=== PATIENT | female | born 1945 | race Caucasian/White ===

== ENCOUNTER → 2022-12-12 15:13 | Outpatient (CLI) | payer SELFPAY ==
[2022-12-12 17:54] LABS: Basophils % 0.6 % (0.1-2.0); Eosinophils # 0.2 K/mm3 (0.0-0.4); Eosinophils % 3.3 % (0.1-12.0); Hematocrit 35.4 % (37.0-47.0); Hemoglobin 10.2 g/dL (12.2-16.2); Lymphocytes # 1.1 K/mm3 (0.7-4.5); Lymphocytes % 18.8 % (10-50); Mean Corpuscular HGB Conc 28.9 g/dL (31.8-35.4); Mean Corpuscular Hemoglobin 24.9 pg (27.0-31.2); Monocytes # 0.3 K/mm3 (0.1-1.0); Monocytes % 5.3 % (1.7-9.3); Neutrophils # 4.4 K/mm3 (1.8-7.8); Platelet Count 407 K/mm3 (142-424); Red Blood Count 4.11 M/mm3 (4.20-5.40); Red Cell Distribution Width 19.7 % (11.5-17.5); White Blood Count 6.1 K/mm3 (4.8-10.8)
== END ==
PROVIDERS: PCP Family Medicine; Visit Provider Family Medicine
DX: D64.9 Anemia, unspecified (principal)
CPT/HCPCS: 85025

== ENCOUNTER 2024-05-12 15:57 | Inpatient (IN) | payer MEDICARE, SELFPAY ==
[2024-05-12] VITALS (12 sets, daily range): BP systolic 97–155; BP diastolic 43–67; PULSE 71–101; RESP 19–30; TEMP 36.5–39.1; O2SAT 88–99; BMI 20.1
--- NOTE | 2024-05-12 16:00 | ECG_ITS ---
APPROVED REPORT Exam: Resting ECG HR:92 bpm ECG Measurements Heart Rate 92 AXES AK 166 P 20 QRSd 90 QRS -48 QT 345 T 59 QTc 395 Conclusion SINUS RHYTHM PATTERN CONSISTENT WITH PULMONARY DISEASE POSSIBLE RIGHT VENTRICULAR CONDUCTION DELAY [RSR (QR) IN V1/V2] LEFT ANTERIOR FASCICULAR BLOCK [QRS AXIS <= -45, QR IN I, RS IN II] ABNORMAL ECG UNCONFIRMED REPORT Electronically signed by : Sven Helms, 05/12/2024 23:15:46
--- NOTE | 2024-05-12 16:13 | XR_ITS ---
PROCEDURE INFORMATION: Exam: XR Chest Exam date and time: 05/12/2024 4:34 PM Age: 78 years old Clinical indication: Dyspnea TECHNIQUE: Imaging protocol: Radiologic exam of the chest. Views: 1 view. COMPARISON: No relevant prior studies available. FINDINGS: Lungs: Unremarkable. No consolidation. Pleural spaces: Unremarkable. No pleural effusion. No pneumothorax. Heart/Mediastinum: Retrocardiac gas collection compatible with large hiatal hernia. Bones/joints: Chronic deformity of the right clavicle compatible with old, healed fracture. No acute fracture. IMPRESSION: No significant infiltrate. Findings compatible with large hiatal hernia.
--- NOTE | 2024-05-12 16:22 | ED_ITS ---
Discharge Plan Disposition Patient Disposition: Admitted Referrals Follow up/Referrals: Provider,Referral, [Primary Care Provider] - See instructions Clinical Impressions Clinical Impression: Acute hypoxemic respiratory failure, Fever, Encephalopathy Discharge ED Provider: Jason Helms General Adult HPI General Chief complaint: Shortness of Breath/Dyspnea Stated complaint: cough, low 02 Time Seen by Provider: 05/12/24 16:05 Mode of Arrival: EMS Source of Information: Patient, EMS and Medical Record Limitations: No Limitations Description of Symptoms (Recalled from ER Triage Doc. by RN): pt came from [facility] [place] for shortness of breath and cough that began that last few days. per ems patient was 88% on room air History of Present Illness HPI narrative: Patient is a 78-year-old female from [place] presents today with cough shortness of breath cough and fever. Patient is encephalopathic and history is limited from her given her clinical status. We do not have any old records from her we do not know if she has a history of COPD CHF etc. Oxygen saturations were 88% on room air we do know that she does not wear oxygen at baseline. Related Data Allergies Allergy/AdvReac Type Severity Reaction Status Date / Time No Known Allergies Allergy Verified 05/12/24 16:24 [facility] Disclaimer: The information contained in this section may have been updated after the patient was seen, as this information can be updated by other users. Social History Smoking Status: Former smoker alcohol intake: never current occupational status: other Travel in the last 8 weeks: None ROS Obtained: Yes All systems reviewed & no additional complaints except as documented Physical Exam General General appearance: alert and in no apparent distress Respiratory Respiratory exam: Present other (On my evaluation patient is on 2 L nasal cannula with oxygen saturations in the mid 90s was reportedly in the 80s on room air she has diffuse wheezing prolonged and expiratory phase otherwise nonfocal) Cardiovascular Cardiovascular exam: Present regular rate, normal rhythm and other (1+ bilateral lower extremity pitting edema) Abdominal Exam Abdominal exam: Present soft; Absent distention or tenderness Neurological Exam Neurological exam: Present alert and CN II-XII intact; Absent oriented X3 (Patient oriented to name but stated that it was 1995 and that she was at [facility] she is disoriented to place and time) or motor sensory deficit Medical Decision Making [place] Inquiry Pt receiving controlled substance: No Vital Signs: 05/12/24 15:57 05/12/24 16:30 05/12/24 17:00 Temperature 102.4 F H Temperature Source Oral Pulse Rate 100 H 96 H Pulse Rate [Right Radial] 91 H Respiratory Rate 24 24 24 Blood Pressure 145/66 H 137/63 Blood Pressure [Right Arm] 155/67 H Blood Pressure Mean 101 87 Blood Pressure Mean [Right Arm] 96 02 Sat by Pulse Oximetry 88 L 99 98 Oxygen Delivery Method Room Air Room Air 05/12/24 17:30 05/12/24 17:30 05/12/24 18:00 Temperature Temperature Source Pulse Rate 87 93 H 101 H Pulse Rate [Right Radial] Respiratory Rate 22 30 H 26 H Blood Pressure 138/62 122/65 125/63 Blood Pressure [Right Arm] Blood Pressure Mean 96 83 Blood Pressure Mean [Right Arm] 02 Sat by Pulse Oximetry 97 97 95 Oxygen Delivery Method 05/12/24 18:30 05/12/24 19:00 Temperature Temperature Source Pulse Rate 96 H 89 Pulse Rate [Right Radial] Respiratory Rate 22 24 Blood Pressure 117/47 L 100/43 L Blood Pressure [Right Arm] Blood Pressure Mean 71 64 Blood Pressure Mean [Right Arm] 02 Sat by Pulse Oximetry 95 93 L Oxygen Delivery Method Lab Data Lab results reviewed: Yes I reviewed the patient's lab results. Lab Results 05/12/24 16:30: SARS-CoV-2 (PCR) Not detected, Influenza A Untype (PCR) Not detected, Influenza Type B (PCR) Not detected 05/12/24 16:35: WBC 6.1, RBC 3.79 L, Hgb 12.9, Hct 40.6, MCV 107.3 H, MCH 34.2 H , MCHC 31.9, RDW 13.3, Plt Count 195, MPV 8.4, Neut % (Auto) 88.0 H, Lymph % (Auto) 8.2 L, [place] % (Auto) 1.9, Eos % (Auto) 1.7, Baso % (Auto) 0.3, Neut # (Auto) 5.4, Lymph # (Auto) 0.5 L, [place] # (Auto) 0.1, Eos # (Auto) 0.1, Baso # (Auto) 0.0, Total Counted 100, Neutrophils % (Manual) 85 H, Lymphocytes % (Manual) 11, Monocytes % (Manual) 3, Eosinophils % (Manual) 1, Platelet Estimate Normal, Macrocytosis 2+, D-Dimer 0.65 H, Sodium 141, Potassium 3.7, Chloride 104, Carbon Dioxide 32 H, Anion Gap 8.7, BUN 20 H, Creatinine 0.80, Estimated Creat Clear 36, Estimated GFR 69, Est GFR ( Amer) 84, Glucose 147 H, Calcium 8.6, Total Bilirubin 0.3, AST 30, ALT 19, Alkaline Phosphatase 71, Troponin I < 0.01, NT-Pro-B Natriuret Pep 236, Total Protein 7.4, Albumin 3.8, G lobulin 3.6 H, Albumin/Globulin Ratio 1.1 05/12/24 16:43: VBG pH 7.37, VBG pCO2 48.7, VBG pO2 27.3 L, VBG HCO3 27.2, VBG Total CO2 28.7 H, VBG O2 Saturation 52.8, VBG Base Excess 1.8, VBG Lactic Acid 1.6 05/12/24 16:35 05/12/24 16:35 Orders (Tests/Meds): ED MEDICATIONS Generic Name Dose Route Start Last Admin Trade Name Freq PRN Reason Stop Dose Admin Doxycycline Hyclate 100 mg/ 250 mls @ 166.667 mls/hr 05/12/24 19:18 Sodium Chloride IV 05/12/24 19:19 ONCE ONE Discontinued Medications Generic Name Dose Route Start Last Admin Trade Name Freq PRN Reason Stop Dose Admin Acetaminophen 1,000 mg 05/12/24 17:07 05/12/24 17:38 Acetaminophen 1,000mg/100ml Vial IV 05/12/24 17:08 1,000 mg ONCE ONE Administration Albuterol/Ipratropium 3 ml 05/12/24 16:13 05/12/24 16:50 Ipratropium/Albuterol 3 Ml Neb IH 05/12/24 16:14 3 ml ONCE ONE Administration Magnesium Sulfate 2 gm in 50 mls @ 50 mls/hr 05/12/24 16:13 05/12/24 16:50 Magnesium Sulfate 2gm/50ml Premix IV 05/12/24 17:12 50 mls/hr ONCE ONE Administration Iopamidol 75 ml 05/12/24 18:28 05/12/24 18:29 Iopamidol-370 (76%);100ml Bottle IV 05/12/24 18:29 75 ml ONCE ONE Administration Methylprednisolone Sodium Succinate 125 mg 05/12/24 16:13 05/12/24 16:50 Methylprednisolone Sod Succ 125mg Vial IV 05/12/24 16:14 125 mg ONCE ONE Administration Sodium Chloride 10 ml 05/12/24 18:28 05/12/24 18:29 Sodium Chloride 0.9% 10ml Syr (Rad Only) IV 05/12/24 18:29 10 ml ONCE ONE Administration Sodium Chloride 50 ml 05/12/24 18:28 05/12/24 18:29 0.9 % Sodium Chloride 50 Ml Vial IV 05/12/24 18:29 50 ml ONCE ONE Administration ORDERS Category Date Time Status CT angio chest PE protocol Stat Cat Scan 05/12/24 17:50 Completed CXR --portable [XR chest portable] Stat Exams 05/12/24 16:13 Completed BNP [NT Pro Brain Natriuretic Pep.] Stat Lab 05/12/24 16:35 Completed CBC w/Auto Diff [Complete Blood Count Auto Diff] Stat Lab 05/12/24 16:35 Completed CMP [Comprehensive Metabolic Panel] Stat Lab 05/12/24 16:35 Completed D-Dimer Stat Lab 05/12/24 16:35 Completed Lactate Venous Stat Lab 05/12/24 16:43 Ordered Rapid PCR Covid and Flu A/B Stat Lab 05/12/24 16:30 Completed Trop I [Troponin I] Stat Lab 05/12/24 16:35 Completed Troponin I Q3H Lab 05/12/24 19:15 Ordered Troponin I Q3H Lab 05/12/24 22:15 Ordered UA [Urinalysis and Microscopic] Stat Lab 05/12/24 16:13 Ordered Blood Culture Stat Micro 05/12/24 16:35 Received Venous Blood Gas Stat RT 05/12/24 16:43 Completed Medical Decision Narrative: I had [id number] presenting today with wheezing cough prolonged expiratory phase hypoxemia and fever. Differential most likely a COPD exacerbation with underlying pneumonia or infection. Will check viral etiology testing get cultures chest x-ray administer steroids DuoNeb and magnesium. On the differential also would be pulmonary malaise him, decompensated heart failure with alternative explanation for fever such as urinary tract infection bacteremia etc. Will reassess after initial workup is complete. History performed on first interpreted shows no acute cardiopulmonary emergency. The fact that I had a high pretest probability for pneumonia got a CTA of the chest which had small amount of atelectasis and large hiatal hernia but no definitive pneumonia. Patient presented and was behaving from a physical exam standpoint like somebody who has COPD I discussed the case further with her daughter who states that she had an extensive history of smoking up until close to 1999 when she was diagnosed with MS. So she may have underlying undiagnosed obstructive lung disease. She was much improved after the breathing treatments and steroids and magnesium however still has significant wheezing still requiring oxygen she was admitted to hospital medicine for further evaluation and management. Doxycycline was added for an microbial coverage in the setting of presumed COPD exacerbation. Critical Care Critical Care Time Critical Care Time: Yes Attestation: On 05/12/24, the high probability of a clinically significant, sudden or life threatening deterioration of the following system(s) required my full and direct attention, intervention and personal management. The time I documented below is in addition to time spent performing reported procedures but includes the following listed in this critical care notation. Total Time Total Critical Care Time: 35
[2024-05-12 16:35] LABS: Coronavirus 19, PCR Not Detected (NotDetected); Influenza A, PCR Not Detected (NotDetected); Influenza B, PCR Not Detected (NotDetected)
[2024-05-12 16:42] LABS: Lactate Venous 1.6 mmol/L (0.4-2.0); VBG Base Excess 1.8 mmol/L (-2.4-2.3); VBG HCO3 27.2 mmol/L (23-30); VBG Oxygen Saturation 52.8 % (50-70); VBG PCO2 48.7 mmol/L (35-51); VBG PH 7.37 mmol/L (7.31-7.41); VBG PO2 27.3 mmol/L (28-40); VBG Total CO2 28.7 mmol/L (23-27)
[2024-05-12] MEDS: METHYLPREDNISOLONE SOD SUCC 125MG VIAL 125 MG IV (16:50)
[2024-05-12] MEDS: IPRATROPIUM/ALBUTEROL 3 ML NEB IH ×2 (16:50→23:39)
[2024-05-12] MEDS: MAGNESIUM SULFATE IN WATER 2 GM/50 ML PIGGYBACK IV (16:50)
[2024-05-12 16:53] LABS: Basophils % 0.3 % (0.1-2.0); Eosinophils # 0.1 K/mm3 (0.0-0.4); Eosinophils % 1.7 % (0.1-12.0); Hematocrit 40.6 % (37.0-47.0); Hemoglobin 12.9 g/dL (12.2-16.2); Lymphocytes # 0.5 K/mm3 (0.7-4.5); Lymphocytes % 8.2 % (10-50); Mean Corpuscular HGB Conc 31.9 g/dL (31.8-35.4); Mean Corpuscular Hemoglobin 34.2 pg (27.0-31.2); Mean Corpuscular Volume 107.3 fl (81-99); Mean Platelet Volume 8.4 fl (7.4-10.4); Monocytes # 0.1 K/mm3 (0.1-1.0); Monocytes % 1.9 % (1.7-9.3); Neutrophils # 5.4 K/mm3 (1.8-7.8); Platelet Count 195 K/mm3 (142-424); Red Blood Count 3.79 M/mm3 (4.20-5.40); Red Cell Distribution Width 13.3 % (11.5-17.5); White Blood Count 6.1 K/mm3 (4.8-10.8)
[2024-05-12 17:01] LABS: MANUAL DIFFERENTIAL MANUAL DIFFERENTIAL (MANUAL DIFF)
[2024-05-12 17:11] LABS: Alanine Aminotransferase 19 U/L (12-78); Albumin Level 3.8 g/dl (3.5-5.0); Albumin/Globulin Ratio 1.1 (1.1-1.8); Alkaline Phosphatase 71 U/L (38-126); Anion Gap 8.7 mEq/L (5-15); Aspartate Amino Transferase 30 U/L (14-36); Bilirubin,Total 0.3 mg/dl (0.2-1.3); Blood Urea Nitrogen 20 mg/dl (7-17); Calcium 8.6 mg/dl (8.4-10.2); Carbon Dioxide 32 mmol/L (22.0-30.0); Chloride 104 mmol/L (98-107); Creatinine Clearance Estimated 36 mL/min (50-200); Estimated Glomerular Filt Rate 69 ml/min (>60); GFR (African American) 84 ML/MIN (>60); Globulin 3.6 g/dL (1.3-3.2); Glucose 147 mg/dl (74-100); Potassium 3.7 mmoL/L (3.5-5.1); Sodium 141 mmol/L (136-145); Total Protein,Serum 7.4 g/dl (6.3-8.2)
[2024-05-12 17:17] LABS: D-Dimer 0.65 ug/mL (0.0-0.5)
[2024-05-12 17:22] LABS: NT Pro Brain Natriuretic Pep. 236 pg/mL (0-450)
[2024-05-12 17:25] LABS: Eosinophils % 1 % (0-3); Lymphocytes % 11 % (10-50); Monocytes % 3 % (2-9); Neutrophils % 85 % (42-76); Total Cells Counted 100
[2024-05-12 17:26] LABS: Macrocytosis 2+; Platelet Estimate Normal
[2024-05-12] MEDS: ACETAMINOPHEN 1,000MG/100ML VIAL 1000 MG IV (17:38)
[2024-05-12 17:50] LABS: Troponin I < 0.01 ng/ml (0.00-0.034)
--- NOTE | 2024-05-12 17:50 | CT_ITS ---
PROCEDURE INFORMATION: Exam: CTA Chest With Contrast Exam date and time: 05/12/2024 6:09 PM Age: 78 years old Clinical indication: Dyspnea; Additional info: Dyspnea, fever, equivocal XR TECHNIQUE: Imaging protocol: Computed tomographic angiography of the chest with contrast. Exam focused on the arteries. 3D rendering (Not supervised by radiologist): MIP and/or 3D reconstructed images were created by the technologist. Radiation optimization: All CT scans at this facility use at least one of these dose optimization techniques: automated exposure control; mA and/or kV adjustment per patient size (includes targeted exams where dose is matched to clinical indication); or iterative reconstruction. Contrast material: ISOVUE 370; Contrast volume: 70 ml; Contrast route: INTRAVENOUS (IV); COMPARISON: CR XR CHEST PORTABLE 05/12/2024 4:34 PM FINDINGS: Pulmonary arteries: Normal. No pulmonary emboli. Aorta: Dense atherosclerotic calcification throughout the aorta. No evidence of aneurysm or dissection. Lungs: Partial compressive atelectasis of the right lower lung. Right upper lung and left lung appear clear. Pleural spaces: Unremarkable. No pneumothorax. No pleural effusion. Heart: Unremarkable. No cardiomegaly. No pericardial effusion. Lymph nodes: Unremarkable. No enlarged lymph nodes. Stomach: Organoaxial malrotation of the stomach noted. Intestine: There is a large hiatal hernia containing the stomach hepatic flexure of the colon. Bones/joints: Moderate degenerative changes and accentuated kyphosis of the thoracic spine. No vertebral body compression or acute fracture. Soft tissues: Unremarkable. IMPRESSION: Large hiatal hernia containing the stomach and portion of the colon with associated organoaxial malrotation of the stomach. No convincing evidence of obstruction. Associated partial compressive atelectasis of the right lower lung. Lungs are otherwise appear clear.
[2024-05-12] MEDS: SODIUM CHLORIDE 0.9% 10ML SYR (RAD ONLY) 10 ML IV (18:29)
[2024-05-12] MEDS: IOPAMIDOL-370 (76%);100ML BOTTLE 75 ML IV (18:29)
[2024-05-12] MEDS: 0.9 % SODIUM CHLORIDE 50 ML VIAL IV (18:29)
--- NOTE | 2024-05-12 19:28 | PC.NURSE ---
attempted to call report to sena mary on 2n floor
--- NOTE | 2024-05-12 19:33 | PC.NURSE ---
called report to sena mary on 2nd floor and answered all questions
--- NOTE | 2024-05-12 19:47 | PC.NURSE ---
Patient arrived to floor via stretcher from ED at 19:44.
--- NOTE | 2024-05-12 19:58 | P.HP_ITS ---
History of Present Illness *Admission Date: 05/12/24 *Reason for visit:: SOB. Hypoxia *History of present illness: This patient is a 78-year-old female [facility] resident with PMHx significant for multiple sclerosis, hyperlipidemia, GERD, large hiatal hernia, former smoker arriving to the ER for evaluation of shortness of breath and hypoxia. Patient is alert and oriented, however forgetful and poor historian. History obtained from daughter(POA) at the bedside. They report patient had a fever, cough, and was shortness of breath; reason why facility scented to the ED for evaluation. Patient does not wear oxygen on baseline she otherwise denies chest pain nausea vomiting or diarrhea or any abdominal pain. she is wheelchair-bound and incontinent of bowel and urine secondary to MS. admitted for [facility] Disclaimer: The information contained in this section may have been updated after the patient was seen, as this information can be updated by other users. Medical History (Updated 05/13/24 @ 11:51 by Mickey Montgomery MD) Pneumonia Multiple sclerosis Social History (Updated 05/12/24 @ 21:15 by Amanda Mendez RN) Smoking Status: Former smoker alcohol intake: never current occupational status: other Travel in the last 8 weeks: None Review of Systems Review of Systems Review of systems:: pertinent systems reviewed and negative unless documented below Meds Home Medications and Allergies Home Medications Medication Instructions Recorded Confirmed Type acetaminophen 325 mg tablet 650 mg PO Q6HP PRN pain or fever 05/12/24 05/13/24 History aluminum-mag hydroxide-simethicone 5 ml PO BID PRN GI DISCOMFORT 05/12/24 05/12/24 History 200 mg-200 mg-20 mg/5 mL oral susp (Maalox Advanced) atorvastatin 10 mg tablet 10 mg PO DAILY 05/12/24 05/12/24 History baclofen 5 mg tablet 5 mg PO BID 05/12/24 05/12/24 History buspirone 10 mg tablet 10 mg PO BID 05/12/24 05/12/24 History calcium carb,cit ER 600 mg-vit D3 1 tab PO DAILY 05/12/24 05/12/24 History 12.5 mcg (500 unit) tablet,ext.rel calcium carbonate (Tums) 300 mg PO QID PRN indegestion 05/12/24 05/12/24 History ferrous sulfate 325 mg (65 mg 325 mg PO DAILY 05/12/24 05/12/24 History iron) tablet,delayed release yqddtfgt-wqt-euhni acid 0.4 1 tab PO DAILY 05/12/24 05/12/24 History mg-lycopene 300 mcg-lutein 250 mcg tablet (CertaVite Senior) omeprazole 40 mg capsule,delayed 40 mg PO DAILY 05/12/24 05/12/24 History release ondansetron 4 mg disintegrating 4 mg PO Q8H PRN Nausea And Vomiting 05/12/24 05/12/24 History tablet raloxifene 60 mg tablet 60 mg PO DAILY 05/12/24 05/12/24 History sertraline 100 mg tablet (Zoloft) 100 mg PO DAILY 05/12/24 05/12/24 History sertraline 50 mg tablet (Zoloft) 50 mg PO DAILY 05/12/24 05/12/24 History vibegron 75 mg tablet (Gemtesa) 75 mg PO DAILY 05/12/24 05/12/24 History vitamin B complex 1 tab PO DAILY 05/12/24 05/12/24 History New Prescriptions to Start Prescriptions: Allergies Allergy/AdvReac Type Severity Reaction Status Date / Time No Known Allergies Allergy Verified 05/12/24 16:24 Exam Data for Last 24 hours Vital signs and Labs for Last 24 Hours: Temp Pulse Resp BP Pulse Ox O2 Del Method O2 Flow Rate 98.0 F 88 20 125/63 93 L Nasal Cannula 2 05/12/24 19:41 05/12/24 19:41 05/12/24 19:41 05/12/24 19:41 05/12/24 19:00 05/12/24 19:41 05/12/24 19:41 Laboratory Results - last 24 hr 05/12/24 16:30: SARS-CoV-2 (PCR) Not detected, Influenza A Untype (PCR) Not detected, Influenza Type B (PCR) Not detected 05/12/24 16:35: WBC 6.1, RBC 3.79 L, Hgb 12.9, Hct 40.6, MCV 107.3 H, MCH 34.2 H , MCHC 31.9, RDW 13.3, Plt Count 195, MPV 8.4, Neut % (Auto) 88.0 H, Lymph % (Auto) 8.2 L, [place] % (Auto) 1.9, Eos % (Auto) 1.7, Baso % (Auto) 0.3, Neut # (Auto) 5.4, Lymph # (Auto) 0.5 L, [place] # (Auto) 0.1, Eos # (Auto) 0.1, Baso # (Auto) 0.0, Total Counted 100, Neutrophils % (Manual) 85 H, Lymphocytes % (Manual) 11, Monocytes % (Manual) 3, Eosinophils % (Manual) 1, Platelet Estimate Normal, Macrocytosis 2+, D-Dimer 0.65 H, Sodium 141, Potassium 3.7, Chloride 104, Carbon Dioxide 32 H, Anion Gap 8.7, BUN 20 H, Creatinine 0.80, Estimated Creat Clear 36, Estimated GFR 69, Est GFR ( Amer) 84, Glucose 147 H, Calcium 8.6, Total Bilirubin 0.3, AST 30, ALT 19, Alkaline Phosphatase 71, Troponin I < 0.01, NT-Pro-B Natriuret Pep 236, Total Protein 7.4, Albumin 3.8, Globulin 3.6 H, Albumin/Globulin Ratio 1.1 05/12/24 16:43: VBG pH 7.37, VBG pCO2 48.7, VBG pO2 27.3 L, VBG HCO3 27.2, VBG Total CO2 28.7 H, VBG O2 Saturation 52.8, VBG Base Excess 1.8, VBG Lactic Acid 1.6 I & O for Last 24 hours: Intake & Output 05/09/24 05/10/24 05/11/24 05/12/24 23:59 23:59 23:59 23:59 Weight 49.895 kg Constitutional Constitutional: no acute distress, thin and chronically ill appearing *Routine HEENT Exam Head: Present normocephalic and atraumatic Eye: Present EOMI and PERRL; Absent normal accommodation ENT: Present mucous membranes moist *Routine Neck Exam Neck: Present supple; Absent lymphadenopathy *Routine Respiratory Exam Respiratory: Present CTA bilaterally, prolonged expiratory phase, rhonchi, wheezes, diminished air movement, normal respiratory effort and symmetric chest movement *Routine Cardiovascular Exam Cardiovascular: Present RRR, Normal S1 and Normal S2 *Routine Abdominal Exam Abdominal: Present soft and normoactive bowel sounds; Absent tenderness, disten ded or rebound *Routine Rectal Exam Rectal:: deferred *Routine Genitalia Exam Genitalia:: deferred *Routine Extremities Exam Extremities: Absent cyanosis, clubbing or edema *Routine Skin Exam Skin: Present warm; Absent rash *Routine Neurological Exam Neurological: Present alert, oriented X3, motor deficit and normal speech; Absent moving all extremities Routine Psychiatric Exam Psychiatric: Present cooperative H&P: Result Imaging and Cardiology CT scan - chest: Status: image reviewed by me, Preliminary report and final report Chest x-ray: Status: image reviewed by me, Preliminary report and final report EKG: Status: image reviewed by me, Preliminary report and final report Assessment and Plan *Assessment and plan (1) Acute hypoxemic respiratory failure: Status: Acute Category: Medical Code(s): J96.01 - Acute respiratory failure with hypoxia (2) Multiple sclerosis: Status: Acute Category: Medical Code(s): G35 - Multiple sclerosis (3) Urinary tract infection: Status: Acute Qualifiers: Hematuria presence: without hematuria Urinary tract infection type: site unspecified Qualified Code(s): N39.0 - Urinary tract infection, site not specified Category: Medical Code(s): N39.0 - Urinary tract infection, site not specified (4) Hiatal hernia with gastroesophageal reflux disease without esophagitis: Status: Acute Category: Medical Code(s): K44.9 - Diaphragmatic hernia without obstruction or gangrene; K21.9 - Gastro-e sophageal reflux disease without esophagitis (5) Wheelchair dependent: Status: Acute Category: Medical Code(s): Z99.3 - Dependence on wheelchair Plan 78 year-old female [facility] resident with PMHx significant for multiple sclerosis, hyperlipidemia, GERD, large hiatal hernia, former smoker arriving to the ER for evaluation of shortness of breath and hypoxia. On arrival she was much improved after the breathing treatments and steroids and magnesium however still has significant wheezing still requiring oxygen. Initial workup reviewed. Labs are grossly unremarkable. D-dimer is a little high. CTA of the chest was negative for PE, does not show consolidation. However there is a Bilateral base atelectasis. CT of the abdomen showed large hiatal hernia containing transverse colon. No signs and symptoms of obstruction patient's denies abdominal pain. Urine concerning for UTI. ED requested admission for further management. I agree for it. Plan -Acute hypoxic respiratory failure In the setting of MS> suspected deterioration. Acute relapsing MS Condition to rule out COPD, Restrictive lung disease Admit patient for inpatient management MRI of the brain Continuous O2 supplement. Currently on 2 L nasal cannula. Pulmonology consult. Patient might need PFTs DuoNeb every 6. Guaifenesin as needed for cough Sputum pending Blood culture pending PT/OT for evaluation. May need placement if not longer qualified for [facility] Speech therapy Monitor for sepsis. Vital signs per unit protocol Repeat labs in the morning CTA of the chest reviewed. -Urinary tract infection: Patient has a history of for incontinent. Wheelchair-bound Started on ceftriaxone UA culture pending Resume oxybutynin for overactive bladder -Large hiatal hernia with esophagitis reflux, containing transverse colon and rotation of the stomach. Suspected worsened. low suspicion for gangrene or obstruction. Patient does not have any symptoms denies abdominal pain. They initially refused surgical treatment Records from [facility] received and reviewed. We deferred surgical consult for now. Protonix daily. Tums and GI could take twice daily Other chronic conditions Osteoporosis degenerative disc disease Anxiety Previous history of anemia medication from home reviewed reconcile Lovenox for DVT prophylaxis. Plan discussed at length with daughter at bedside. They agreed. Patient has a living will. Would like to be DNR DNI. Daughter to bring paperwork Okay to advance diet after nursing bedside swallow test. Pending the speech therapy to rule out silent aspiration Rounded on patient after nurse practitioner. Personally examined and interviewed patient. Agree with exam findings and care plan as documented.
[2024-05-12 20:53] LABS: Troponin I 0.01 ng/ml (0.00-0.034)
[2024-05-12] MEDS: DOXYCYCLINE HYCLATE 100 MG in 0.9 % SODIUM CHLORIDE 250 ML 166.667000000000002 MG IV (21:37)
[2024-05-12] MEDS: PANTOPRAZOLE 40MG TABLET 40 MG PO (21:38)
[2024-05-12] MEDS: GUAIFENESIN/DEXTROMETHORPHAN 200MG/20MG 10ML UDC 5 ML PO (22:30)
[2024-05-12 22:54] LABS: Microscopic, Urine URINE MICROSCOPIC (MICROSCOPIC)
[2024-05-12 23:06] LABS: Troponin I < 0.01 ng/ml (0.00-0.034)
[2024-05-12 23:19] LABS: Bilirubin,Urine Negative (Negative); Blood, Urine 2+ (Negative); Color,Urine YELLOW (Yellow); Glucose,Urine (UA) Negative (Negative); Ketones,Urine Negative (Negative); Leukocyte Esterase,Urine 1+ (Negative); Nitrate,Urine Negative (Negative); Protein,Urine TRACE (Negative); Specific Gravity, Urine 1.015 (1.005-1.030); Urobilinogen,Urine 0.2 EU/dl (0.2)
[2024-05-12 23:24] LABS: Appearance,Urine Cloudy (Clear)
[2024-05-12 23:30] LABS: RBC,Urine 20-50 #/hpf (0-3)
[2024-05-12 23:31] LABS: Bacteria,Urine 1+ /lpf
[2024-05-12] MEDS: CEFTRIAXONE 1 GM 1 GM in 0.9 % SODIUM CHLORIDE 50 ML IV (23:45)
[2024-05-12] MEDS: SODIUM CHLORIDE 3% 15ML NEB 3 ML IH (23:46)
[2024-05-13] VITALS (12 sets, daily range): BP systolic 108–121; BP diastolic 45–61; PULSE 62–95; RESP 16–21; TEMP 36.4–37.1; O2SAT 91–98; BMI 21.7
[2024-05-13 06:17] LABS: Chloride 107 mmol/L (98-107)
[2024-05-13 06:18] LABS: Potassium 3.6 mmoL/L (3.5-5.1); Sodium 140 mmol/L (136-145)
[2024-05-13 06:20] LABS: Alanine Aminotransferase 20 U/L (12-78); Alkaline Phosphatase 63 U/L (38-126); Anion Gap 8.6 mEq/L (5-15); Aspartate Amino Transferase 29 U/L (14-36); Bilirubin,Total 0.2 mg/dl (0.2-1.3); Blood Urea Nitrogen 18 mg/dl (7-17); Carbon Dioxide 28 mmol/L (22.0-30.0); Creatinine Clearance Estimated 39 mL/min (50-200); Estimated Glomerular Filt Rate 96 ml/min (>60); GFR (African American) 117 ML/MIN (>60)
[2024-05-13] MEDS: IPRATROPIUM/ALBUTEROL 3 ML NEB IH ×3 (06:20→18:43)
[2024-05-13 06:21] LABS: Albumin Level 3.4 g/dl (3.5-5.0); Basophils % 0.2 % (0.1-2.0); Calcium 8.4 mg/dl (8.4-10.2); Globulin 3.3 g/dL (1.3-3.2); Glucose 137 mg/dl (74-100); Hematocrit 38.5 % (37.0-47.0); Hemoglobin 12.1 g/dL (12.2-16.2); Lymphocytes # 0.6 K/mm3 (0.7-4.5); Lymphocytes % 7.5 % (10-50); Magnesium 2.4 mg/dl (1.6-2.3); Mean Corpuscular HGB Conc 31.5 g/dL (31.8-35.4); Mean Corpuscular Hemoglobin 33.5 pg (27.0-31.2); Mean Corpuscular Volume 106.5 fl (81-99); Mean Platelet Volume 8.4 fl (7.4-10.4); Monocytes # 0.2 K/mm3 (0.1-1.0); Monocytes % 2.5 % (1.7-9.3); Neutrophils # 7.3 K/mm3 (1.8-7.8); Neutrophils % 89.8 % (37.0-80.0); Platelet Count 195 K/mm3 (142-424); Red Blood Count 3.62 M/mm3 (4.20-5.40); Red Cell Distribution Width 13.5 % (11.5-17.5); Total Protein,Serum 6.7 g/dl (6.3-8.2); White Blood Count 8.1 K/mm3 (4.8-10.8)
[2024-05-13 06:25] LABS: MANUAL DIFFERENTIAL MANUAL DIFFERENTIAL (MANUAL DIFF)
[2024-05-13 07:29] LABS: Lymphocytes % 7 % (10-50); Macrocytosis 2+; Monocytes % 1 % (2-9); Neutrophils % 92 % (42-76); Platelet Estimate Normal; Total Cells Counted 100
--- NOTE | 2024-05-13 07:59 | MR_ITS ---
FINAL REPORT TECHNIQUE: Multiplanar MR without contrast CLINICAL HISTORY: MS FINDINGS: Diffusion sequences show no signal abnormality to indicate acute infarct. There are extensive confluent white matter signal changes within both hemispheres. In a patient of this age, this is more likely due to advanced chronic microvascular disease. There are abnormal signal changes in the brainstem or cerebellum. Moderate generalized atrophy is present. No mass, hemorrhage or edema is seen. Ventricles are normal. Major vascular flow voids are intact. IMPRESSION: Extensive white matter signal changes in a pattern favored to be due to advanced chronic microvascular disease, much less likely demyelinating disorder. Reviewed, Interpreted and Dictated by Onesimo Aldrich MD Transcribed by Renee Hughes Authenticated and [facility][1]
[2024-05-13] MEDS: BUSPIRONE HCL 10 MG TABLET PO ×2 (09:15→20:09)
[2024-05-13] MEDS: FERROUS SULFATE 325MG TABLET 325 MG PO (09:15)
[2024-05-13] MEDS: CALCIUM CARB + VIT D 500MG TAB 500 MG PO (09:16)
[2024-05-13] MEDS: BACLOFEN 10MG TABLET 5 MG PO ×2 (09:16→20:09)
[2024-05-13] MEDS: ENOXAPARIN 40MG/0.4ML SYRINGE 40 MG SQ (09:19)
[2024-05-13] MEDS: SERTRALINE 100MG TABLET 150 MG PO (09:21)
--- NOTE | 2024-05-13 09:35 | EXP.PULM.CON ---
History of Present Illness History of present illness: Ms. English is a 78-year-old female with a reported history of multiple sclerosis dyslipidemia acid reflux disease presented to ER with worsening respiratory distress admitted to the hospital pulmonary was consulted for further evaluation and management. Upon further questioning patient was diagnosed with multiple sclerosis around 1990 during which she stopped smoking after 31 years of 1 pack year smoking history. Patient has been diligently progressing 6 and predominant complaints include lower extremity weakness. She is wheelchair-bound. However she has good upper strength. She continues to have cough and productive phlegm. Reason for admission small worsening cough and productive phlegm and weakness. She is not using any oxygen at baseline. [facility] Disclaimer: The information contained in this section may have been updated after the patient was seen, as this information can be updated by other users. Medical History (Updated 05/13/24 @ 11:51 by Mickey Montgomery MD) Pneumonia Multiple sclerosis Social History (Updated 05/12/24 @ 21:15 by Amanda Mendez RN) Smoking Status: Former smoker alcohol intake: never current occupational status: other Travel in the last 8 weeks: None Review of Systems Constitutional Constitutional: Reports anorexia, Reports body ache(s) and Reports fatigue Eyes Eyes: Denies eye discharge, Denies dry eyes, Denies irritation and Denies itchy eyes ENT Ears, Nose, Mouth, and Throat: Denies epistaxis, Denies facial pain, Denies lip swelling and Denies throat swelling *Cardiovascular Cardiovascular: Reports dyspnea and Reports dyspnea on exertion *Respiratory Respiratory: Reports chest congestion, Reports cough, Reports dyspnea, Reports dyspnea on exertion, Reports excessive phlegm production and Reports wheezing *Gastrointestinal Gastrointestinal: Denies abdominal pain, Denies belching and Denies cramping *Musculoskeletal Musculoskeletal: Reports atrophy, Reports back pain, Reports muscle weakness, Reports myalgias and Reports other (No small joint swelling or Pain) Psychiatric Psychiatric: Denies homicidal ideation and Denies suicidal ideation Endocrine Endocrine: Reports fatigue and Denies heat intolerance Hematologic/Lymphatic Hematologic/Lymphatic: Denies easy bleeding and Denies lymphadenopathy Allergic/Immunologic Allergic/Immunologic: Denies itchy eyes, Denies lip swelling, Denies throat swelling and Reports wheezing Pulmonology Exam Inpatient Vital signs and Labs for Last 24 Hours: Temp Pulse Resp BP Pulse Ox O2 Del Method O2 Flow Rate 97.6 F 70 16 108/49 L 93 L Room Air 1 05/13/24 07:52 05/13/24 08:00 05/13/24 04:00 05/13/24 07:52 05/13/24 07:52 05/13/24 07:52 05/13/24 06:48 Laboratory Results - last 24 hr 05/12/24 16:30: SARS-CoV-2 (PCR) Not detected, Influenza A Untype (PCR) Not detected, Influenza Type B (PCR) Not detected 05/12/24 16:35: WBC 6.1, RBC 3.79 L, Hgb 12.9, Hct 40.6, MCV 107.3 H, MCH 34.2 H, MCHC 31.9, RDW 13.3, Plt Count 195, MPV 8.4, Neut % (Auto) 88.0 H, Lymph % (Auto) 8.2 L, [place] % (Auto) 1.9, Eos % (Auto) 1.7, Baso % (Auto) 0.3, Neut # (Auto) 5.4, Lymph # (Auto) 0.5 L, [place] # (Auto) 0.1, Eos # (Auto) 0.1, Baso # (Auto) 0.0, Total Counted 100, Neutrophils % (Manual) 85 H, Lymphocytes % (Manual) 11, Monocytes % (Manual) 3, Eosinophils % (Manual) 1, Platelet Estimate Normal, Macrocytosis 2+, D-Dimer 0.65 H, Sodium 141, Potassium 3.7, Chloride 104, Carbon Dioxide 32 H, Anion Gap 8.7, BUN 20 H, Creatinine 0.80, Estimated Creat Clear 36, Estimated GFR 69, Est GFR ( Amer) 84, Glucose 147 H, Calcium 8.6, Total Bilirubin 0.3, AST 30, ALT 19, Alkaline Phosphatase 71, Troponin I < 0.01, NT-Pro-B Natriuret Pep 236, Total Protein 7.4, Albumin 3.8, Globulin 3.6 H, Albumin/Globulin Ratio 1.1 05/12/24 16:43: VBG pH 7.37, VBG pCO2 48.7, VBG pO2 27.3 L, VBG HCO3 27.2, VBG Total CO2 28.7 H, VBG O2 Saturation 52.8, VBG Base Excess 1.8, VBG Lactic Acid 1.6 05/12/24 20:23: Troponin I 0.01 05/12/24 22:30: Troponin I < 0.01, Urine Color Yellow, Urine Appearance Cloudy, Urine pH 5.0, Ur Specific [place] 1.015, Urine Protein Trace, Urine Glucose (UA) Negative, Urine Ketones Negative, Urine Blood 2+, Urine Nitrate Negative, Urine Bilirubin Negative, Urine Urobilinogen 0.2, Ur Leukocyte Esterase 1+ A, Urine RBC 20-50, Urine WBC 10-20, Ur Squamous Epith Cells 3-5, Urine Bacteria 1+ 05/13/24 05:46: WBC 8.1 D, RBC 3.62 L, Hgb 12.1 L, Hct 38.5, MCV 106.5 H, MCH 33.5 H, MCHC 31.5 L, RDW 13.5, Plt Count 195, MPV 8.4, Neut % (Auto) 89.8 H, Lymph % (Auto) 7.5 L, Cascade % (Auto) 2.5, Eos % (Auto) 0.0 L, Baso % (Auto) 0.2, Neut # (Auto) 7.3, Lymph # (Auto) 0.6 L, Cascade # (Auto) 0.2, Eos # (Auto) 0.0, Baso # (Auto) 0.0, Total Counted 100, Neutrophils % (Manual) 92 H, Lymphocytes % (Manual) 7 L, Monocytes % (Manual) 1 L, Platelet Estimate Normal, Macrocytosis 2+, Sodium 140, Potassium 3.6, Chloride 107, Carbon Dioxide 28, Anion Gap 8.6, BUN 18 H, Creatinine 0.60 D, Estimated Creat Clear 39, Estimated GFR 96, Est GFR ( Amer) 117 D, Glucose 137 H, Calcium 8.4, Magnesium 2.4 H, Total Bilirubin 0.2, AST 29, ALT 20, Alkaline Phosphatase 63, Total Protein 6.7, Albumin 3.4 L D, Globulin 3.3 H, Albumin/Globulin Ratio 1.0 L I & O for Labs for Last 24 Hours: Intake & Output 05/10/24 05/11/24 05/12/24 05/13/24 23:59 23:59 23:59 23:59 Intake Total 350 / 350 Output Total 0 / 0 0 / 0 Balance 0 / 350 350 / 350 Weight 110 lb 118 lb 1 oz Constitutional: Present moderate distress Head: Present normocephalic and atraumatic ENT: Present normal exam, normal oropharynx and mucous membranes moist Neck: Present normal inspection and full ROM Respiratory: Present prolonged expiratory phase, rhonchi, wheezes, diminished air movement and able to speak in complete sentences Cardiac: Present S1/S2, Tachycardia and radial pulses present GI: Present soft and distention; Absent tenderness or guarding Rectal (female): Present deferred (female): Present deferred Skin: Present intact; Absent cyanosis or jaundice Neuro: Present alert, awake and oriented x 3 Extremities: Present normal inspection; Absent clubbing or cyanosis Psychiatric: Present normal affect and cooperative Meds Home Medications and Allergies Home Medications Medication Instructions Recorded Confirmed Type acetaminophen 325 mg tablet 650 mg PO Q6HP PRN pain or fever 05/12/24 05/13/24 History aluminum-mag hydroxide-simethicone 5 ml PO BID PRN GI DISCOMFORT 05/12/24 05/12/24 History 200 mg-200 mg-20 mg/5 mL oral susp (Maalox Advanced) atorvastatin 10 mg tablet 10 mg PO DAILY 05/12/24 05/12/24 History baclofen 5 mg tablet 5 mg PO BID 05/12/24 05/12/24 History buspirone 10 mg tablet 10 mg PO BID 05/12/24 05/12/24 History calcium carb,cit ER 600 mg-vit D3 1 tab PO DAILY 05/12/24 05/12/24 History 12.5 mcg (500 unit) tablet,ext.rel calcium carbonate (Tums) 300 mg PO QID PRN indegestion 05/12/24 05/12/24 History ferrous sulfate 325 mg (65 mg 325 mg PO DAILY 05/12/24 05/12/24 History iron) tablet,delayed release tqgwmtto-vcq-thbjc acid 0.4 1 tab PO DAILY 05/12/24 05/12/24 History mg-lycopene 300 mcg-lutein 250 mcg tablet (CertaVite Senior) omeprazole 40 mg capsule,delayed 40 mg PO DAILY 05/12/24 05/12/24 History release ondansetron 4 mg disintegrating 4 mg PO Q8H PRN Nausea And Vomiting 05/12/24 05/12/24 History tablet raloxifene 60 mg tablet 60 mg PO DAILY 05/12/24 05/12/24 History sertraline 100 mg tablet (Zoloft) 100 mg PO DAILY 05/12/24 05/12/24 History sertraline 50 mg tablet (Zoloft) 50 mg PO DAILY 05/12/24 05/12/24 History vibegron 75 mg tablet (Gemtesa) 75 mg PO DAILY 05/12/24 05/12/24 History vitamin B complex 1 tab PO DAILY 05/12/24 05/12/24 History New Prescriptions to Start Prescriptions: Allergies Allergy/AdvReac Type Severity Reaction Status Date / Time No Known Allergies Allergy Verified 05/12/24 16:24 Results Laboratory Findings 05/13/24 05:46 05/13/24 05:46 PT/INR, D-dimer D-Dimer 0.65 ug/mL (0.0-0.5) H 05/12/24 16:35 Abnormal lab findings: Abnormal Labs 05/12/24 05/12/24 05/12/24 16:35 16:43 22:30 RBC 3.79 L Hgb MCV 107.3 H MCH 34.2 H MCHC Neut % (Auto) 88.0 H Lymph % (Auto) 8.2 L Eos % (Auto) Lymph # (Auto) 0.5 L Neutrophils % (Manual) 85 H Lymphocytes % (Manual) Monocytes % (Manual) D-Dimer 0.65 H VBG pO2 27.3 L VBG Total CO2 28.7 H Carbon Dioxide 32 H BUN 20 H Glucose 147 H Magnesium Albumin Globulin 3.6 H Albumin/Globulin Ratio Ur Leukocyte Esterase 1+ A 05/13/24 05:46 RBC 3.62 L Hgb 12.1 L MCV 106.5 H MCH 33.5 H MCHC 31.5 L Neut % (Auto) 89.8 H Lymph % (Auto) 7.5 L Eos % (Auto) 0.0 L Lymph # (Auto) 0.6 L Neutrophils % (Manual) 92 H Lymphocytes % (Manual) 7 L Monocytes % (Manual) 1 L D-Dimer VBG pO2 VBG Total CO2 Carbon Dioxide BUN 18 H Glucose 137 H Magnesium 2.4 H Albumin 3.4 L D Globulin 3.3 H Albumin/Globulin Ratio 1.0 L Ur Leukocyte Esterase Assessment and Plan *Assessment and plan (1) Acute hypoxemic respiratory failure: Status: Acute Category: Medical Code(s): J96.01 - Acute respiratory failure with hypoxia (2) Pneumonia: Status: Acute Category: Medical Code(s): J18.9 - Pneumonia, unspecified organism Plan Ms. English is a 78-year-old female with a reported history of multiple sclerosis dyslipidemia acid reflux disease presented to ER with worsening respiratory distress admitted to the hospital pulmonary was consulted for further evaluation and management. Upon further questioning patient was diagnosed with multiple sclerosis around 1990 during which she stopped smoking after 31 years of 1 pack year smoking history. Patient has been diligently progressing 6 and predominant complaints include lower extremity weakness. She is wheelchair-bound. However she has good upper strength. She continues to have cough and productive phlegm. Reason for admission small worsening cough and productive phlegm and weakness. She is not using any oxygen at baseline. VBG upon admission did not show any evidence of hypercarbic respiratory failure. Showed hypoxic respiratory failure. CTA upon admission no evidence of pulmonary embolism. Right lower lobe atelectasis/airspace disease noted. Large hiatal hernia which appeared to be compressing the right lower lobe noted. Minimal emphysematous changes No evidence of leukocytosis. Afebrile. Hemodynamically stable. COVID-19 and flu PCR panel negative. Plan: Speech and swallow evaluation, aspiration precautions Continue 5 days of treatment for severe community-acquired pneumonia. Currently receiving ceftriaxone and doxycycline. Antibiotics can be weaned to cefdinir to complete a total of 5-day course upon discharge Continue oxygen supplementation as needed to maintain O2 saturation goal of 90% and above. Weaned to room air this morning. Will continue to follow. Initiate chest percussion therapy twice daily. Patient can be discharged and flutter valve or chest percussion therapy based on discharge disposition evaluation Incentive spirometry Continue DuoNebs every 6 hours on a scheduled basis # Thank you for involving pulmonary in this patient care. Will continue to follow.
--- NOTE | 2024-05-13 10:18 | PC.NURSE ---
pt O2 sat is 94% on room air sitting up in bed at rest. no signs or symptoms of distress.
[2024-05-13 12:31] LABS: Adenovirus,PCR Not Detected (NotDetected); Bordetella Pertussis Not Detected (NotDetected); Chlamydophila Pneumoniae, PCR Not Detected (NotDetected); Coronavirus 19, PCR Not Detected (NotDetected); Coronavirus 229E Not Detected (NotDetected); Coronavirus NL63 Not Detected (NotDetected); Coronavirus OC43 Not Detected (NotDetected); Coronovirus HKU1,PCR Not Detected (NotDetected); Human Metapneumovirus Detected (NotDetected); Influenza A, PCR Not Detected (NotDetected); Influenza AH1, 2009 Not Detected (NotDetected); Influenza AH1, PCR Not Detected (NotDetected); Influenza AH3,PCR Not Detected (NotDetected); Influenza B, PCR Not Detected (NotDetected); Mycoplasma Pneumoniae, PCR Not Detected (NotDetected); Parainfluenza 1, PCR Not Detected (NotDetected); Parainfluenza 2, PCR Not Detected (NotDetected); Parainfluenza 3, PCR Not Detected (NotDetected); Parainfluenza 4, PCR Not Detected (NotDetected); Respiratory Syncytial Virus Not Detected (NotDetected); Rhinovirus/Enterovirus Not Detected (NotDetected)
--- NOTE | 2024-05-13 13:56 | HMH.PTEV ---
Physical Therapy Evaluation Rehab PT IP Evaluation Start: 05/12/24 21:52 Freq: ONCE Status: Active Protocol: Document 05/13/24 13:50 LUDMILA (Rec: 05/13/24 13:55 LUDMILA [id number]) Subjective/History History History Per H&P: This patient is a 78-year-old female [facility] resident with PMHx significant for multiple sclerosis, hyperlipidemia, GERD, large hiatal hernia, former smoker arriving to the ER for evaluation of shortness of breath and hypoxia. Patient is alert and oriented, however forgetful and poor historian. History obtained from daughter(CANDIE) at the bedside. They report patient had a fever, cough, and was shortness of breath; reason why facility scented to the ED for evaluation. Patient does not wear oxygen on baseline she otherwise denies chest pain nausea vomiting or diarrhea or any abdominal pain . she is wheelchair-bound and incontinent of bowel and urine secondary to MS. admitted for Subjective Subjective PLOF per pt and pt's family report: Lives at [facility]. Primarily w/c bound. Some assistance required for ADLs and transfers. IND with w/c mobility. New diagnosis of cancer in past 12 No months? Rehab PT IP Eval Objective Appearance Patient Behavior Appropriate,Cooperative Patient Orientation Person,Place Difficulty following instructions none Speech Pattern Clear Ambulation Patient Able to Ambulate No Balance Ability to Arise Able, uses arms to help Sitting Balance Steady, safe Standing Balance Unsteady Transfers Bed Transfer Ability Minimal x 2 (25% assist) Sit to Stand Bed Transfer Ability Moderate x 2 (50% assist) Rehab PT IP prob,goals,plan Problems Date of Evaluation: 05/13/24 PT IP Problems Bed Mobility,Transfers,Gait, Balance,Safety Rehab Potential Rehab Potential Good Equipment Needs Assistive Devices Wheelchair Plan PT Intervention Plan Bed Mobility,Transfers,Balance ,Safety,Therapeutic Exercise Other Intervention Plan 1-2 times PT Plan Frequency Daily Duration LOS Discharge Goals Bed Transfer Ability Minimal x 1 (25% assist) Sit to Stand Chair Transfer Ability Minimal x 2 (25% assist) Discharge Plan PT Discharge Plan Initial physical therapy evaluation performed. Pt usually living at [facility] but acknowledges that she needs more assistance. Pt required assistance for bed mobility and STS transfer. Patient presents below baseline at this time in functional mobility, transfers, and strength. PT recommending short-term rehabilitation stay upon d/c from [facility]. Pt would benefit from skilled PT while at [facility] to prevent further functional decline and maximize safety with mobility. Eval Complexity Eval Charge Codes 25793 - Moderate Complexity PHYSICIAN CERTIFICATION: I certify the specified therapy services for Marielos English are required, authorized, and reviewed every 30 days.
--- NOTE | 2024-05-13 14:52 | HMH.SLDYSPHA ---
Speech & Language Evaluation Speech/Language Dysphagia Evaluation Start: 05/13/24 14:28 Freq: ONCE Status: Active Protocol: Document 05/13/24 14:28 GLADYS (Rec: 05/13/24 14:52 GLADYS [id number]) Co-signed By ST Elly Dysphagia Assess/Goals/Plan Assessment Date of Evaluation: 05/13/24 Evaluation Type Initial Certification Assessment/Problems MS tinoco per MD order Does Patient Qualify for Service No Qualify/Failure Comment Based on clinical observations made throughout the evaluation and informal assessment, pt does not qualify for skilled speech therapy services d/t pt's cognitive-linguistic status and swallowing function and efficiency being WFL. If pt's cognitive-linguistic status/ swallowing efficiency and function decline, SECURITY DEVELOPER will fu. Recommendations PHYSICIAN CERTIFICATION: The specified therapy services are required, authorized, and reviewed every 30 days. Diet Recommendations Normal Liquid Type Recommendations Normal/Thin SL Swallow Guidelines Alt bite w/sip thru meal, Standard Aspiration Prec.,Eat at slow rate,Oral Care Education,Oral care pre/post meals,Reflux precautions Dysphagia Swallow Precautions/Strategies Sitting Upright (90 deg),Small Bites and Sips,Alternate Liquids/Solids Plan Pt/Guardian verbally ack understanding Yes of dx/prognosis/goals G -code Required No Stud Master/Mistress Goals Diet Regular with Liquids Thin Liquids Education Instructions provided Education provided to pt and pt's daughter re: bedside swallow evaluation, speech/ language evaluation, and diet recommendations. SECURITY DEVELOPER notified care management and nursing of pt's diet recommendation. Pt/Caregiver able to recall information Able to recall/restate Reinforcement needed Yes Speech & Language HPI History Present Illness Description of Patient Problem SECURITY DEVELOPER copied the following H&P from pt's chart: This patient is a 78-year-old female [facility] resident with PMHx significant for multiple sclerosis, hyperlipidemia, GERD, large hiatal hernia, former smoker arriving to the ER for evaluation of shortness of breath and hypoxia. Patient is alert and oriented, however forgetful and poor historian. History obtained from daughter(POA) at the bedside. They report patient had a fever, cough, and was shortness of breath; reason why facility scented to the ED for evaluation. Patient does not wear oxygen on baseline she otherwise denies chest pain nausea vomiting or diarrhea or any abdominal pain . she is wheelchair-bound and incontinent of bowel and urine secondary to MS. Language Primary Language Estonian Quechan Lang/Spoken in Home Estonian Accent Affect Communication? No General Information General Current Food Consistancy Regular,Thin Liquids Dentition Good Dentition Facial Symmetry Symmetrical Patient Orientation Person Ability to Follow Directions Good Communication Ability No Impairment Dysphagia:Food Presentation Evaluation Food Type Pureed,Mechanical Soft,Regular ,Liquid,Pudding Dysphagia Evaluation Summary A clinical swallow exam was administered to assess pt swallow function while sitting upright in bed. SECURITY DEVELOPER presented the pt with the following consistencies: thin liquid ( water) via open cup and straw x2 trials, pudding x2 trials, pureed (applesauce) x2 trials, mechanical soft (Nutrigrain bar) x2 trials, and regular ( samy cracker) x2 trials. All bolus' were trialed x2 to assess for potential fatigue. Pt did not exhibit any overt s /sx of aspiration or penetration on any consistency trialed. Pt's mastication on regular solids was mildly reduced. Mild oral residue observed on mech soft and regular trials, which were cleared by x1 liquid wash. A speech/language/cognitive evaluation was completed on this date as well. Pt's auditory comprehension and verbal expression were assessed to be WFL c/b adequate ability to follow 1-2 step commands, answer yes/no and wh- questions, comprehend narrative discourse, repeat monosyllabic words, name objects, and sentence completion. Pt was oriented to name, age, , and current state on this date, but was not oriented to hospital, city , day of week, month of year, or time of day, which daughter states is baseline. Further speech services are not warranted at this time. If a decline in cognitive- lingisitic status or swallowing efficiency is observed, SECURITY DEVELOPER will fu with pt. Stroke Dysphagia Assessment PHYSICIAN CERTIFICATION: I certify the specified therapy services for Marielos English are required, authorized, and reviewed every 30 days.
--- NOTE | 2024-05-13 14:55 | HMH.OTEV ---
OT Inpatient Evaluation Rehab OT IP Evaluation Start: 05/12/24 21:52 Freq: ONCE Status: Active Protocol: Document 05/13/24 14:37 GALILEA (Rec: 05/13/24 14:54 GALILEA [id number]) Rehab OT IP Assessment Subjective History This patient is a 78-year-old female [facility] resident with PMHx significant for multiple sclerosis, hyperlipidemia, GERD, large hiatal hernia, former smoker arriving to the ER for evaluation of shortness of breath and hypoxia. Patient is alert and oriented, however forgetful and poor historian. History obtained from daughter(CANDIE) at the bedside. They report patient had a fever, cough, and was shortness of breath; reason why facility scented to the ED for evaluation. Patient does not wear oxygen on baseline she otherwise denies chest pain nausea vomiting or diarrhea or any abdominal pain . she is wheelchair-bound and incontinent of bowel and urine secondary to MS. admitted for. Resident at [facility] [place] >1 year. Independent with propelling self in w/c and transfers. Nursing assist with ADLs as needed. Subjective I can try to sit up. Instructed Patient on proper hand and foot placement to complete bed mobility from supine->sit @ EOB ->stand requiring Max A X2. Patient stood <:30 secs with needing max support. Assisted patient back to bed to supine with Max A x2. Left Patient proped up on R side for pressure relief. Objective Patient Orientation Person,Name,Age,Birthday,Year Right Upper Extremity Gross ROM WFL Left Upper Extremity Gross ROM WFL Bed Mobility bed mobility - supine/sit Assist Level Maximum x 2 (75% assist) Transfer Training Sit/Stand Transfer Assist Level Maximum x 2 (75% assist) Chair Transfer Ability Maximum x 2 (75% assist) Chair Transfer Technique Stand Step Pivot Rehab OT IP prob,goals,plan Problems Date of Evaluation: 05/13/24 OT IP Problems Bed Mobility,Transfers,Balance ,Self care,Safety Rehab Potential Rehab Potential Good Equipment Needs Assistive Devices None / NA Plan OT intervention Plan Bed Mobility,Transfers,Balance ,Self care,Safety,Therapeutic Exercise OT Plan Frequency Daily Duration LOS Discharge Goals Bed Mobility Ability Assistance x1 Sit to Stand Chair Transfer Ability Maximum x 1 (75% assist) Chair Transfer Ability Maximum x 1 (75% assist) Chair Transfer Technique Sit to/from Ambulatory Discharge Plan OT Discharge Plan Recommend placement to return to [place]. Continue OT IP services while here at [facility]. Eval Complexity Eval Charge Codes 31515 - Low Complexity PHYSICIAN CERTIFICATION: I certify the specified therapy services for Marielos English are required, authorized, and reviewed every 30 days.
[2024-05-13] MEDS: GUAIFENESIN/DEXTROMETHORPHAN 200MG/20MG 10ML UDC 5 ML PO (15:42)
--- NOTE | 2024-05-13 16:47 | CARE MANAGER ---
Addendum entered by Diane Oh 05/16/24 08:48: Per Jacobo carr/ [facility] this patient has been approved for [facility] level of care. Patient will discharge back to [facility] today. Original Note: Patient currently resides [facility] level of care at [facility]. PT/OT, patient, and family believe patient would benefit from STR. Caroline Hutchison RN spoke with [facility] and they will start authorization for patient to return there [facility] level of care.
[2024-05-13] MEDS: MULTIVITAMIN TABLET 1 EACH PO (17:16)
--- NOTE | 2024-05-13 18:08 | PC.NURSE ---
Pt has done well this shift. VSS. Remains wheezy upon auscultation. Pt appears to be feeling a little better this evening. Pt has had a poor appetite today.
--- NOTE | 2024-05-13 18:16 | P.PN_ITS ---
Subjective *Date: 05/13/24 *Time: 19:15 Interval history: Doing well this morning. Daughter at bedside. Rhonchorous cough but in no acute distress. Afebrile overnight. No nausea or vomiting. Medical Exam Vital signs and Labs for Last 24 Hours: Vital Signs Temp Pulse Pulse Resp BP BP Pulse Ox 05/13/24 17:00 05/13/24 16:00 95 H 05/13/24 16:00 98.7 F 78 21 110/45 L 93 L 05/13/24 15:00 05/13/24 13:00 05/13/24 12:00 80 05/13/24 11:37 75 05/13/24 11:37 72 05/13/24 11:37 92 L 05/13/24 11:37 75 16 05/13/24 11:16 98.1 F 75 21 114/58 L 92 L 05/13/24 11:00 05/13/24 10:18 93 L 05/13/24 09:15 05/13/24 09:00 05/13/24 08:00 70 05/13/24 07:52 97.6 F 70 108/49 L 93 L 05/13/24 06:48 05/13/24 06:21 79 05/13/24 06:21 64 05/13/24 06:21 98 05/13/24 05:00 05/13/24 04:00 97.6 F 62 16 110/55 L 96 05/13/24 04:00 70 05/13/24 03:00 05/13/24 01:00 05/13/24 00:00 97.6 F 72 18 109/59 L 95 05/13/24 00:00 70 05/12/24 23:55 71 20 05/12/24 23:50 96 H 05/12/24 23:50 71 05/12/24 23:00 05/12/24 21:00 05/12/24 20:07 80 05/12/24 20:00 97.7 F 83 19 97/46 L 94 L 05/12/24 20:00 05/12/24 19:41 98.0 F 88 20 125/63 05/12/24 19:00 89 24 100/43 L 93 L 05/12/24 18:30 96 H 22 117/47 L 95 O2 Del Method O2 Flow Rate 05/13/24 17:00 Room Air 05/13/24 16:00 05/13/24 16:00 Room Air 05/13/24 15:00 Room Air 05/13/24 13:00 Room Air 05/13/24 12:00 05/13/24 11:37 05/13/24 11:37 05/13/24 11:37 Room Air 05/13/24 11:37 05/13/24 11:16 Room Air 05/13/24 11:00 Room Air 05/13/24 10:18 Room Air 05/13/24 09:15 Room Air 05/13/24 09:00 Room Air 05/13/24 08:00 05/13/24 07:52 Room Air 05/13/24 06:48 Nasal Cannula 1 05/13/24 06:21 05/13/24 06:21 05/13/24 06:21 Nasal Cannula 2 05/13/24 05:00 Nasal Cannula 2 05/13/24 04:00 Nasal Cannula 2 05/13/24 04:00 05/13/24 03:00 Nasal Cannula 2 05/13/24 01:00 Nasal Cannula 2 05/13/24 00:00 Nasal Cannula 2 05/13/24 00:00 05/12/24 23:55 05/12/24 23:50 05/12/24 23:50 05/12/24 23:00 Nasal Cannula 2 05/12/24 21:00 Nasal Cannula 3 05/12/24 20:07 05/12/24 20:00 Nasal Cannula 3 05/12/24 20:00 Nasal Cannula 3 05/12/24 19:41 Nasal Cannula 2 05/12/24 19:00 05/12/24 18:30 Intake and Output 05/13/24 05/13/24 05/13/24 07:59 15:59 23:59 Intake Total 350 / 940 240 / 940 350 / 940 Output Total 0 / 0 0 / 0 0 / 0 Balance 350 / 940 240 / 940 350 / 940 Intake: Intake, Oral Amount 50 / 640 240 / 640 350 / 640 Intake, Total IV Amount 300 / 300 Ceftriaxone 1 gm 1 gm In 0.9 % 50 / 50 Sodium Chloride 50 ml @ 100 mls /hr IV Q24H [facility] Rx#:[id number] Doxycycline Hyclate 100 mg In 0 250 / 250 .9 % Sodium Chloride 250 ml @ 166.667 mls/hr IV ONCE ONE Rx#: [id number] Output: Output, Urine Amount 0 / 0 0 / 0 0 / 0 Other: Number of Unmeasured Voids 1 1 1 Weight 53.552 kg 53.55 kg Patient Weight 05/13/24 23:59 Weight 53.55 kg Laboratory Results - last 24 hr 05/12/24 20:23: Troponin I 0.01 05/12/24 22:30: Troponin I < 0.01, Urine Color Yellow, Urine Appearance Cloudy, Urine pH 5.0, Ur Specific [place] 1.015, Urine Protein Trace, Urine Glucose (UA) Negative, Urine Ketones Negative, Urine Blood 2+, Urine Nitrate Negative, Urine Bilirubin Negative, Urine Urobilinogen 0.2, Ur Leukocyte Esterase 1+ A, Urine RBC 20-50, Urine WBC 10-20, Ur Squamous Epith Cells 3-5, Urine Bacteria 1+ 05/13/24 05:46: WBC 8.1 D, RBC 3.62 L, Hgb 12.1 L, Hct 38.5, MCV 106.5 H, MCH 33.5 H, MCHC 31.5 L, RDW 13.5, Plt Count 195, MPV 8.4, Neut % (Auto) 89.8 H, Lymph % (Auto) 7.5 L, [place] % (Auto) 2.5, Eos % (Auto) 0.0 L, Baso % (Auto) 0.2, Neut # (Auto) 7.3, Lymph # (Auto) 0.6 L, [place] # (Auto) 0.2, Eos # (Auto) 0.0, Baso # (Auto) 0.0, Total Counted 100, Neutrophils % (Manual) 92 H, Lymphocytes % (Manual) 7 L, Monocytes % (Manual) 1 L, Platelet Estimate Normal, Macrocytosis 2+, Sodium 140, Potassium 3.6, Chloride 107, Carbon Dioxide 28, Anion Gap 8.6, BUN 18 H, Creatinine 0.60 D, Estimated Creat Clear 39, Estimated GFR 96, Est GFR ( Amer) 117 D, Glucose 137 H, Calcium 8.4, Magnesium 2.4 H, Total Bilirubin 0.2, AST 29, ALT 20, Alkaline Phosphatase 63, Total Protein 6.7, Albumin 3.4 L D, Globulin 3.3 H, Albumin/Globulin Ratio 1.0 L 05/13/24 16:30: Chlamy pneumoniae PCR Not detected, Adenovirus (PCR) Not detected, B. pertussis DNA (PCR) Not detected, Coronavirus OC43 (PCR) Not detected, Coronavirus HKU1 (PCR) Not detected, Coronavirus 229E (PCR) Not dete cted, SARS-CoV-2 (PCR) Not detected, Coronavirus NL63 (PCR) Not detected, Human Metapneumovir PCR Detected A, Influenza A (H1) PCR Not detected, Influ A (H1N1/09) PCR Not detected, Influenza A (H3) PCR Not detected, Influenza Type A (PCR) Not detected, Influenza Type B (PCR) Not detected, M. pneumoniae (PCR) Not detected, Parainfluenza 1 (PCR) Not detected, Parainfluenza 2 (PCR) Not detected, Parainfluenza 3 (PCR) Not detected, Parainfluenza 4 (PCR) Not detected, RSV (PCR) Not detected, Entero/Rhino (PCR) Not detected I & O for Labs for Last 24 Hours: Intake & Output 05/10/24 05/11/24 05/12/24 05/13/24 23:59 23:59 23:59 23:59 Intake Total 940 / 940 Output Total 0 / 0 0 / 0 Balance 0 / 350 940 / 940 Weight 49.895 kg 53.55 kg Microbiology Reports for the Last 24 Hours: Microbiology 05/12/24 16:30 Blood Blood Culture - Preliminary NO GROWTH AFTER 24 HOURS 05/12/24 16:35 Blood Blood Culture - Preliminary NO GROWTH AFTER 24 HOURS Constitutional: Present no acute distress, thin and chronically ill appearing Head: Present atraumatic and normocephalic ENT: Present normal exam Neck: Present normal inspection Respiratory: Present rhonchi, crackles and normal respiratory effort; Absent wheezes Cardiac: Present Reg Rate and Rhythm GI: Present soft and normal bowel sounds; Absent distention or tenderness Extremities: Present normal inspection and full ROM Skin: Present intact; Absent erythema Neuro: Present Grossly Intact, alert, awake, oriented x 3 and moves all extremities Assessment and Plan *Assessment and plan (1) Acute hypoxemic respiratory failure: Status: Acute Category: Medical Code(s): J96.01 - Acute respiratory failure with hypoxia (2) Human metapneumovirus (hMPV) pneumonia: Status: Acute Category: Medical Code(s): J12.3 - Human metapneumovirus pneumonia (3) Urinary tract infection: Status: Acute Qualifiers: Hematuria presence: without hematuria Urinary tract infection type: site unspecified Qualified Code(s): N39.0 - Urinary tract infection, site not specified Category: Medical Code(s): N39.0 - Urinary tract infection, site not specified (4) Multiple sclerosis: Status: Acute Category: Medical Code(s): G35 - Multiple sclerosis (5) Hiatal hernia with gastroesophageal reflux disease without esophagitis: Status: Acute Category: Medical Code(s): K44.9 - Diaphragmatic hernia without obstruction or gangrene; K21.9 - Gastro- esophageal reflux disease without esophagitis (6) Wheelchair dependent: Status: Acute Category: Medical Code(s): Z99.3 - Dependence on wheelchair Plan 78 year-old female BETTY resident with PMHx significant for multiple sclerosis, hyperlipidemia, GERD, large hiatal hernia, former smoker arriving to the ER for evaluation of shortness of breath and hypoxia. On arrival she was much improved after the breathing treatments and steroids and magnesium however still has significant wheezing still requiring oxygen. Initial workup reviewed. Labs are grossly unremarkable. D-dimer is a little high. CTA of the chest was negative for PE, does not show consolidation. However there is a Bilateral base atelectasis. CT of the abdomen showed large hiatal hernia containing transverse colon. No signs and symptoms of obstruction patient's denies abdominal pain. Urine concerning for UTI. ED requested admission for further management. Medicine agreed to admit. Patient found to have acute and metapneumovirus on comprehensive respiratory panel this morning. This could explain her fever and respiratory failure. Weaning oxygen as tolerated. Pulmonology assisting with care. Therapy evaluating. Problems addressed as follows: Human metapneumovirus pneumonia Acute hypoxemic respiratory failure -Pulmonology consulted, discussed case today, continue supplemental oxygen as needed, weaned to room air on rounds. Tolerating for now, goal sats greater 90% -Continue DuoNebs every 6 hours scheduled - Will initiate percussion due to patient's difficulty expectorating sputum. -Continue ceftriaxone and doxycycline while admitted. Can wean to cefdinir at discharge to complete 5 days total of antibiotics. -If unable to provide percussion at rehab facility on discharge, will transition to flutter valve. -Sputum culture pending -Speech evaluated, no restrictions on diet. -White cell count of 8.1 this morning. I have ordered CBC, CMP, magnesium for the morning. -Remainder of labs nonactionable with potassium 3.6, magnesium 2.4, creatinine 0.6. MS versus potential stroke -MRI obtained, personally reviewed showing periventricular white matter lesions. They appear more infarct like to me given location and attenuation on T2 weighting. Formal read concerning for microvascular gliotic changes, demyelination less likely. -Therapy working with patient. Recommend skilled rehab -Urinary tract infection: Patient has a history of for incontinent. Wheelchair-bound Continue IV ceftriaxone. Urine culture pending -Large hiatal hernia with esophagitis reflux, containing transverse colon and rotation of the stomach. Suspected worsened. low suspicion for gangrene or obstruction. Patient does not have any symptoms denies abdominal pain. They initially refused surgical treatment Records from [facility] received and reviewed. We deferred surgical consult for now. Protonix daily. Tums and GI could take twice daily Other chronic conditions: Osteoporosis degenerative disc disease Anxiety - Buspirone 10 mg twice daily for anxiety - Zoloft 150 mg daily for anxiety Lovenox for DVT prophylaxis. Patient has a living will. Would like to be DNR DNI. Daughter to bring paperwork, full code until paperwork brought to bedside Regular diet
[2024-05-13] MEDS: ATORVASTATIN 10MG TABLET 10 MG PO (20:09)
[2024-05-13] MEDS: PANTOPRAZOLE 40MG TABLET 40 MG PO (20:09)
[2024-05-13] MEDS: CEFTRIAXONE 1 GM 1 GM in 0.9 % SODIUM CHLORIDE 50 ML IV (23:36)
[2024-05-14] VITALS (13 sets, daily range): BP systolic 115–149; BP diastolic 59–75; PULSE 66–90; RESP 16–20; TEMP 36.5–37; O2SAT 89–97; BMI 21.7
[2024-05-14] MEDS: IPRATROPIUM/ALBUTEROL 3 ML NEB IH ×5 (00:26→23:13)
--- NOTE | 2024-05-14 06:25 | PC.NURSE ---
Pt did well through the shift. Still very wheezy and having difficulty coughing. Satting 87-89 on room air -1L nc. Pt satting mid 90's on 2L. No complaints of pain through the night. Bed alarm on.
[2024-05-14 08:19] LABS: Basophils % 0.5 % (0.1-2.0); Eosinophils # 0.1 K/mm3 (0.0-0.4); Eosinophils % 0.8 % (0.1-12.0); Hemoglobin 11.8 g/dL (12.2-16.2); Lymphocytes # 0.7 K/mm3 (0.7-4.5); Lymphocytes % 11.1 % (10-50); Mean Corpuscular HGB Conc 31.9 g/dL (31.8-35.4); Mean Corpuscular Hemoglobin 34.7 pg (27.0-31.2); Mean Corpuscular Volume 108.9 fl (81-99); Mean Platelet Volume 7.9 fl (7.4-10.4); Monocytes # 0.2 K/mm3 (0.1-1.0); Monocytes % 2.5 % (1.7-9.3); Neutrophils # 5.1 K/mm3 (1.8-7.8); Platelet Count 173 K/mm3 (142-424); Red Cell Distribution Width 13.5 % (11.5-17.5)
[2024-05-14 08:22] LABS: Chloride 107 mmol/L (98-107); Potassium 3.5 mmoL/L (3.5-5.1); Sodium 140 mmol/L (136-145)
[2024-05-14 08:25] LABS: Alanine Aminotransferase 13 U/L (12-78); Albumin Level 3.2 g/dl (3.5-5.0); Alkaline Phosphatase 57 U/L (38-126); Anion Gap 6.5 mEq/L (5-15); Aspartate Amino Transferase 30 U/L (14-36); Bilirubin,Total 0.3 mg/dl (0.2-1.3); Blood Urea Nitrogen 14 mg/dl (7-17); Calcium 8.3 mg/dl (8.4-10.2); Carbon Dioxide 30 mmol/L (22.0-30.0); Creatinine Clearance Estimated 39 mL/min (50-200); Estimated Glomerular Filt Rate 119 ml/min (>60); GFR (African American) 144 ML/MIN (>60); Globulin 3.2 g/dL (1.3-3.2); Glucose 91 mg/dl (74-100); Magnesium 1.9 mg/dl (1.6-2.3); Total Protein,Serum 6.4 g/dl (6.3-8.2)
[2024-05-14 08:41] LABS: MANUAL DIFFERENTIAL MANUAL DIFFERENTIAL (MANUAL DIFF)
[2024-05-14] MEDS: FERROUS SULFATE 325MG TABLET 325 MG PO (10:40)
[2024-05-14] MEDS: ENOXAPARIN 40MG/0.4ML SYRINGE 40 MG SQ (10:41)
[2024-05-14] MEDS: CALCIUM CARB + VIT D 500MG TAB 500 MG PO (10:41)
[2024-05-14] MEDS: BACLOFEN 10MG TABLET 5 MG PO ×2 (10:41→20:44)
[2024-05-14] MEDS: BUSPIRONE HCL 10 MG TABLET PO ×2 (10:41→20:44)
[2024-05-14] MEDS: SERTRALINE 100MG TABLET 150 MG PO (10:43)
[2024-05-14 10:56] LABS: Lymphocytes % 11 % (10-50); Monocytes % 4 % (2-9); Neutrophils % 84 % (42-76); Total Cells Counted 100
[2024-05-14 10:57] LABS: Macrocytosis 2+; Platelet Estimate Normal
[2024-05-14] MEDS: GUAIFENESIN/DEXTROMETHORPHAN 200MG/20MG 10ML UDC 5 ML PO (13:54)
--- NOTE | 2024-05-14 16:39 | EXP.ACUTE.PN ---
Subjective *Date: 05/14/24 *Time: 16:39 Interval history: Patient says she does not feel as well today. More rhonchorous on exam. Put back on oxygen overnight. Afebrile. No nausea or vomiting. Appears more weak. Medical Exam Vital signs and Labs for Last 24 Hours: Vital Signs Temp Pulse Pulse Resp BP Pulse Ox O2 Del Method 05/14/24 16:00 97.7 F 78 17 121/63 91 L Room Air 05/14/24 15:00 Room Air 05/14/24 13:00 Room Air 05/14/24 12:23 98.4 F 74 20 124/75 92 L Nasal Cannula 05/14/24 12:00 80 05/14/24 11:20 72 05/14/24 11:20 73 05/14/24 11:20 91 L Nasal Cannula 05/14/24 11:00 Room Air 05/14/24 10:00 Room Air 05/14/24 09:00 Room Air 05/14/24 08:00 80 05/14/24 08:00 98.1 F 66 18 118/64 94 L Nasal Cannula 05/14/24 06:45 74 05/14/24 06:45 75 05/14/24 06:45 91 L Nasal Cannula 05/14/24 05:00 Room Air 05/14/24 04:00 71 05/14/24 04:00 98.0 F 79 16 121/59 L 95 Nasal Cannula 05/14/24 03:00 Room Air 05/14/24 01:00 Room Air 05/14/24 00:29 72 05/14/24 00:29 72 05/14/24 00:00 82 05/14/24 00:00 98.6 F 74 16 115/60 97 Nasal Cannula 05/13/24 23:00 Room Air 05/13/24 21:00 Room Air 05/13/24 20:00 75 05/13/24 20:00 97.9 F 77 18 121/61 91 L Room Air 05/13/24 19:58 Room Air 05/13/24 18:50 75 05/13/24 18:50 75 18 05/13/24 18:50 75 05/13/24 18:50 91 L Room Air 05/13/24 18:38 Room Air 05/13/24 17:00 Room Air O2 Flow Rate FiO2 05/14/24 16:00 05/14/24 15:00 05/14/24 13:00 05/14/24 12:23 2 05/14/24 12:00 05/14/24 11:20 05/14/24 11:20 05/14/24 11:20 2 05/14/24 11:00 05/14/24 10:00 05/14/24 09:00 05/14/24 08:00 05/14/24 08:00 2 05/14/24 06:45 05/14/24 06:45 05/14/24 06:45 2 05/14/24 05:00 05/14/24 04:00 05/14/24 04:00 2 05/14/24 03:00 05/14/24 01:00 05/14/24 00:29 05/14/24 00:29 05/14/24 00:00 05/14/24 00:00 05/13/24 23:00 05/13/24 21:00 05/13/24 20:00 05/13/24 20:00 05/13/24 19:58 05/13/24 18:50 05/13/24 18:50 05/13/24 18:50 05/13/24 18:50 05/13/24 18:38 05/13/24 17:00 Intake and Output 05/14/24 05/14/24 05/14/24 07:59 15:59 23:59 Intake Total 200 / 260 60 / 260 Output Total 0 / 0 Balance 200 / 260 60 / 260 Intake: Intake, Oral Amount 200 / 260 60 / 260 Output: Output, Urine Amount 0 / 0 Other: Number of Voids 1 Number of Unmeasured Voids 1 1 Number of Bowel Movements 1 Weight 53.55 kg Patient Weight 05/14/24 23:59 Weight 53.55 kg Laboratory Results - last 24 hr 05/14/24 07:42: WBC 6.0 D, RBC 3.40 L, Hgb 11.8 L, Hct 37.0, MCV 108.9 H, MCH 34.7 H, MCHC 31.9, RDW 13.5, Plt Count 173, MPV 7.9, Neut % (Auto) 85.0 H, Lymph % (Auto) 11.1, [place] % (Auto) 2.5, Eos % (Auto) 0.8, Baso % (Auto) 0.5, Neut # (Auto) 5.1, Lymph # (Auto) 0.7, [place] # (Auto) 0.2, Eos # (Auto) 0.1, Baso # (Auto) 0.0, Total Counted 100, Neutrophils % (Manual) 84 H, Lymphocytes % (Manual) 11, Monocytes % (Manual) 4, Basophils % (Manual) 1.0, Platelet Estimate Normal, Macrocytosis 2+, Sodium 140, Potassium 3.5, Chloride 107, Carbon Dioxide 30, Anion Gap 6.5, BUN 14, Creatinine 0.50 L, Estimated Creat Clear 39, Estimated GFR 119, Est GFR ( Amer) 144 D, Glucose 91, Calcium 8.3 L, Magnesium 1.9 D, Total Bilirubin 0.3, AST 30, ALT 13 D, Alkaline Phosphatase 57, Total Protein 6.4, Albumin 3.2 L, Globulin 3.2, Albumin/Globulin Ratio 1.0 L I & O for Labs for Last 24 Hours: Intake & Output 05/11/24 05/12/24 05/13/24 05/14/24 23:59 23:59 23:59 23:59 Intake Total 940 / 1140 260 / 260 Output Total 0 / 0 0 / 0 0 / 0 Balance 0 / 350 940 / 1140 260 / 260 Weight 49.895 kg 53.55 kg 53.55 kg Microbiology Reports for the Last 24 Hours: Microbiology 05/12/24 Unknown Urine,Clean Catch Urine Culture - Preliminary 05/12/24 16:30 Blood Blood Culture - Preliminary NO GROWTH AFTER 24 HOURS 05/12/24 16:35 Blood Blood Culture - Preliminary NO GROWTH AFTER 24 HOURS Constitutional: Present no acute distress, thin and chronically ill appearing Head: Present atraumatic and normocephalic ENT: Present normal exam Neck: Present normal inspection Respiratory: Present rhonchi, crackles and normal respiratory effort; Absent wheezes Cardiac: Present Reg Rate and Rhythm GI: Present soft and normal bowel sounds; Absent distention or tenderness Extremities: Present normal inspection and full ROM Skin: Present intact; Absent erythema Neuro: Present Grossly Intact, alert, awake, oriented x 3 and moves all extremities Assessment and Plan *Assessment and plan (1) Acute hypoxemic respiratory failure: Status: Acute Category: Medical Code(s): J96.01 - Acute respiratory failure with hypoxia (2) Human metapneumovirus (hMPV) pneumonia: Status: Acute Category: Medical Code(s): J12.3 - Human metapneumovirus pneumonia (3) Urinary tract infection: Status: Acute Qualifiers: Urinary tract infection type: site unspecified Hematuria presence: without hematuria Qualified Code(s): N39.0 - Urinary tract infection, site not specified Category: Medical Code(s): N39.0 - Urinary tract infection, site not specified (4) Multiple sclerosis: Status: Acute Category: Medical Code(s): G35 - Multiple sclerosis (5) Hiatal hernia with gastroesophageal reflux disease without esophagitis: Status: Acute Category: Medical Code(s): K44.9 - Diaphragmatic hernia without obstruction or gangrene; K21.9 - Gastro-esophageal reflux disease without esophagitis (6) Wheelchair dependent: Status: Acute Category: Medical Code(s): Z99.3 - Dependence on wheelchair Plan 78-year-old female who presented with shortness of breath, cough, hypoxia. History of multiple sclerosis. Found to have human metapneumovirus. Continues to require inpatient management with supplemental oxygen and respiratory therapy. Having a hard time clearing her secretions. Problems addressed as follows: Human metapneumovirus pneumonia Acute hypoxemic respiratory failure -Supplemental oxygen as needed, goal sats greater 90%. Currently on 2 L -Continue DuoNebs every 6 hours scheduled -Continue aggressive respiratory therapy with percussion twice daily using vest. Flutter valve multiple times an hour. -Continue ceftriaxone and doxycycline while admitted. Can wean to cefdinir at discharge to complete 5 days total of antibiotics. -If unable to provide percussion at rehab facility on discharge, will transition to flutter valve. -Sputum culture pending -Speech evaluated, no restrictions on diet. -White cell count of 6.0 this morning. I have ordered CBC, CMP, magnesium for the morning. -Remainder of labs nonactionable with Sodium 140, potassium 3.5, magnesium 1.9, creatinine 0.5. MS versus potential stroke -MRI obtained, personally reviewed showing periventricular white matter lesions. They appear more infarct like to me given location and attenuation on T2 weighting. Formal read concerning for microvascular gliotic changes, demyelination less likely. -Therapy working with patient. Recommend skilled rehab -Urinary tract infection: Patient has a history of for incontinent. Wheelchair-bound Continue IV ceftriaxone. Urine culture pending -Large hiatal hernia with esophagitis reflux, containing transverse colon and rotation of the stomach. Suspected worsened. low suspicion for gangrene or obstruction. Patient does not have any symptoms denies abdominal pain. They initially refused surgical treatment Records from [facility] received and reviewed. Protonix daily. Tums and GI could take twice daily Other chronic conditions: Osteoporosis degenerative disc disease Anxiety - Buspirone 10 mg twice daily for anxiety - Zoloft 150 mg daily for anxiety Lovenox for DVT prophylaxis. Patient has a living will. Would like to be DNR DNI. Daughter to bring paperwork, full code until paperwork brought to bedside Regular diet
[2024-05-14] MEDS: MULTIVITAMIN TABLET 1 EACH PO (17:30)
[2024-05-14] MEDS: PANTOPRAZOLE 40MG TABLET 40 MG PO (20:44)
[2024-05-14] MEDS: ATORVASTATIN 10MG TABLET 10 MG PO (20:44)
[2024-05-14] MEDS: CEFTRIAXONE 1 GM 1 GM in 0.9 % SODIUM CHLORIDE 50 ML IV (22:14)
[2024-05-15] VITALS (14 sets, daily range): BP systolic 125–144; BP diastolic 52–69; PULSE 65–95; RESP 16–24; TEMP 36.4–36.9; O2SAT 90–96; BMI 20.8
[2024-05-15] MEDS: IPRATROPIUM/ALBUTEROL 3 ML NEB IH ×4 (06:51→23:22)
[2024-05-15 08:36] LABS: Basophils % 0.4 % (0.1-2.0); Eosinophils # 0.1 K/mm3 (0.0-0.4); Eosinophils % 0.9 % (0.1-12.0); Hematocrit 39.8 % (37.0-47.0); Hemoglobin 12.5 g/dL (12.2-16.2); Lymphocytes # 0.9 K/mm3 (0.7-4.5); Lymphocytes % 16.1 % (10-50); Mean Corpuscular HGB Conc 31.3 g/dL (31.8-35.4); Mean Corpuscular Hemoglobin 33.5 pg (27.0-31.2); Mean Corpuscular Volume 107.1 fl (81-99); Mean Platelet Volume 8.5 fl (7.4-10.4); Monocytes # 0.2 K/mm3 (0.1-1.0); Monocytes % 3.4 % (1.7-9.3); Neutrophils # 4.6 K/mm3 (1.8-7.8); Neutrophils % 79.2 % (37.0-80.0); Platelet Count 193 K/mm3 (142-424); Red Blood Count 3.72 M/mm3 (4.20-5.40); Red Cell Distribution Width 13.4 % (11.5-17.5); White Blood Count 5.8 K/mm3 (4.8-10.8)
[2024-05-15 08:48] LABS: Chloride 105 mmol/L (98-107); Sodium 140 mmol/L (136-145)
[2024-05-15 08:49] LABS: Potassium 3.6 mmoL/L (3.5-5.1)
[2024-05-15 08:51] LABS: Alanine Aminotransferase 12 U/L (12-78); Albumin Level 3.4 g/dl (3.5-5.0); Alkaline Phosphatase 61 U/L (38-126); Anion Gap 10.6 mEq/L (5-15); Aspartate Amino Transferase 29 U/L (14-36); Bilirubin,Total 0.4 mg/dl (0.2-1.3); Blood Urea Nitrogen 16 mg/dl (7-17); Calcium 8.5 mg/dl (8.4-10.2); Carbon Dioxide 28 mmol/L (22.0-30.0); Creatinine Clearance Estimated 37 mL/min (50-200); Estimated Glomerular Filt Rate 119 ml/min (>60); GFR (African American) 144 ML/MIN (>60); Globulin 3.3 g/dL (1.3-3.2); Glucose 71 mg/dl (74-100); Total Protein,Serum 6.7 g/dl (6.3-8.2)
[2024-05-15] MEDS: BUSPIRONE HCL 10 MG TABLET PO ×2 (09:22→20:48)
[2024-05-15] MEDS: ENOXAPARIN 40MG/0.4ML SYRINGE 40 MG SQ (09:22)
[2024-05-15] MEDS: FERROUS SULFATE 325MG TABLET 325 MG PO (09:22)
[2024-05-15] MEDS: BACLOFEN 10MG TABLET 5 MG PO ×2 (09:23→20:48)
[2024-05-15] MEDS: SERTRALINE 100MG TABLET 150 MG PO (09:23)
[2024-05-15] MEDS: CALCIUM CARB + VIT D 500MG TAB 500 MG PO (09:34)
[2024-05-15 09:35] LABS: Magnesium 1.9 mg/dl (1.6-2.3)
--- NOTE | 2024-05-15 10:03 | EXP.PHA.PN ---
Subjective *Date: 05/15/24 *Time: 10:03 Medical Exam Vital signs and Labs for Last 24 Hours: Vital Signs Temp Pulse Pulse Resp BP Pulse Ox O2 Del Method 05/15/24 08:00 70 05/15/24 07:46 91 L Room Air 05/15/24 07:45 97.5 F L 70 18 128/69 91 L Room Air 05/15/24 06:50 65 05/15/24 06:50 65 05/15/24 06:50 93 L Nasal Cannula 05/15/24 04:00 67 05/15/24 04:00 98.4 F 66 16 138/59 L 94 L Nasal Cannula 05/15/24 00:00 70 05/15/24 00:00 97.8 F 79 16 144/52 H 96 Nasal Cannula 05/14/24 23:40 87 05/14/24 23:39 90 05/14/24 20:00 77 05/14/24 20:00 98.2 F 82 16 149/73 H 90 L Nasal Cannula 05/14/24 19:50 Nasal Cannula 05/14/24 19:42 83 05/14/24 19:42 90 05/14/24 19:42 89 L Room Air 05/14/24 19:41 Nasal Cannula 05/14/24 18:46 Room Air 05/14/24 17:00 Room Air 05/14/24 16:00 75 05/14/24 16:00 97.7 F 78 17 121/63 91 L Room Air 05/14/24 15:00 Room Air 05/14/24 13:00 Room Air 05/14/24 12:23 98.4 F 74 20 124/75 92 L Nasal Cannula 05/14/24 12:00 80 05/14/24 11:20 72 05/14/24 11:20 73 05/14/24 11:20 91 L Nasal Cannula 05/14/24 11:00 Room Air O2 Flow Rate FiO2 05/15/24 08:00 05/15/24 07:46 05/15/24 07:45 05/15/24 06:50 05/15/24 06:50 05/15/24 06:50 2 05/15/24 04:00 05/15/24 04:00 2 05/15/24 00:00 05/15/24 00:00 2 05/14/24 23:40 05/14/24 23:39 05/14/24 20:00 05/14/24 20:00 2 05/14/24 19:50 2 05/14/24 19:42 05/14/24 19:42 05/14/24 19:42 05/14/24 19:41 2 28 05/14/24 18:46 05/14/24 17:00 05/14/24 16:00 05/14/24 16:00 05/14/24 15:00 05/14/24 13:00 05/14/24 12:23 2 05/14/24 12:00 05/14/24 11:20 05/14/24 11:20 05/14/24 11:20 2 05/14/24 11:00 Intake and Output 05/14/24 05/15/24 05/15/24 23:59 07:59 15:59 Intake Total 50 / 50 Output Total 0 / 0 0 / 0 Balance 0 / 310 50 / 50 Intake: Intake, Oral Amount 50 / 50 Output: Output, Urine Amount 0 / 0 0 / 0 Other: Number of Unmeasured Voids 1 1 Number of Bowel Movements 1 Weight 51.301 kg Patient Weight 05/15/24 23:59 Weight 51.301 kg Laboratory Results - last 24 hr 05/14/24 07:42: Total Counted 100, Neutrophils % (Manual) 84 H, Lymphocytes % (Manual) 11, Monocytes % (Manual) 4, Basophils % (Manual) 1.0, Platelet Estimate Normal, Macrocytosis 2+ 05/15/24 07:28: WBC 5.8, RBC 3.72 L, Hgb 12.5, Hct 39.8, MCV 107.1 H, MCH 33.5 H, MCHC 31.3 L, RDW 13.4, Plt Count 193, MPV 8.5, Neut % (Auto) 79.2, Lymph % (Auto) 16.1, [place] % (Auto) 3.4, Eos % (Auto) 0.9, Baso % (Auto) 0.4, Neut # (Auto) 4.6, Lymph # (Auto) 0.9, [place] # (Auto) 0.2, Eos # (Auto) 0.1, Baso # (Auto) 0.0, Sodium 140, Potassium 3.6, Chloride 105, Carbon Dioxide 28, Anion Gap 10.6, BUN 16, Creatinine 0.50 L, Estimated Creat Clear 37, Estimated GFR 119, Est GFR ( Amer) 144, Glucose 71 L D, Calcium 8.5, Magnesium 1.9, Total Bilirubin 0.4, AST 29, ALT 12, Alkaline Phosphatase 61, Total Protein 6.7, Albumin 3.4 L, Globulin 3.3 H, Albumin/Globulin Ratio 1.0 L I & O for Labs for Last 24 Hours: Intake & Output 05/12/24 05/13/24 05/14/24 05/15/24 23:59 23:59 23:59 23:59 Intake Total 940 / 1140 260 / 310 50 / 50 Output Total 0 / 0 0 / 0 0 / 0 0 / 0 Balance 0 / 350 940 / 1140 260 / 310 50 / 50 Weight 49.895 kg 53.55 kg 53.55 kg 51.301 kg Microbiology Reports for the Last 24 Hours: Microbiology 05/12/24 Unknown Urine,Clean Catch Urine Culture - Final 05/12/24 16:35 Blood Blood Culture - Preliminary NO GROWTH AFTER 48 HOURS 05/12/24 16:30 Blood Blood Culture - Preliminary NO GROWTH AFTER 48 HOURS The patient's infection will respond to the chosen ABx?: Yes Is the patient receiving the right drug, dose, and route?: Yes Could a more targeted ABx be ordered?: No (URINE CX RESULTED POSSIBLE CONTAMINATION, CONTINUING.)
--- NOTE | 2024-05-15 13:07 | EXP.ACUTE.PN ---
Subjective *Date: 05/15/24 *Time: 17:59 Interval history: Feeling little better this morning. Weaned to room air. Drinking coffee on rounds. Still having difficult time clearing secretions. High risk for readmission. Will monitor 1 more day. Denies chest pain, nausea, vomiting. Medical Exam Vital signs and Labs for Last 24 Hours: Vital Signs Temp Pulse Pulse Resp BP Pulse Ox O2 Del Method 05/15/24 11:30 81 05/15/24 11:30 80 24 05/15/24 11:30 90 L Room Air 05/15/24 11:00 Room Air 05/15/24 09:20 Room Air 05/15/24 09:00 Room Air 05/15/24 08:00 70 05/15/24 07:46 91 L Room Air 05/15/24 07:45 97.5 F L 70 18 128/69 91 L Room Air 05/15/24 06:50 65 05/15/24 06:50 65 05/15/24 06:50 93 L Nasal Cannula 05/15/24 04:00 67 05/15/24 04:00 98.4 F 66 16 138/59 L 94 L Nasal Cannula 05/15/24 00:00 70 05/15/24 00:00 97.8 F 79 16 144/52 H 96 Nasal Cannula 05/14/24 23:40 87 05/14/24 23:39 90 05/14/24 20:00 77 05/14/24 20:00 98.2 F 82 16 149/73 H 90 L Nasal Cannula 05/14/24 19:50 Nasal Cannula 05/14/24 19:42 83 05/14/24 19:42 90 05/14/24 19:42 89 L Room Air 05/14/24 19:41 Nasal Cannula 05/14/24 18:46 Room Air 05/14/24 17:00 Room Air 05/14/24 16:00 75 05/14/24 16:00 97.7 F 78 17 121/63 91 L Room Air 05/14/24 15:00 Room Air O2 Flow Rate FiO2 05/15/24 11:30 05/15/24 11:30 05/15/24 11:30 05/15/24 11:00 05/15/24 09:20 91 05/15/24 09:00 05/15/24 08:00 05/15/24 07:46 06/23/24 07:45 05/15/24 06:50 05/15/24 06:50 05/15/24 06:50 2 05/15/24 04:00 05/15/24 04:00 2 05/15/24 00:00 05/15/24 00:00 2 05/14/24 23:40 05/14/24 23:39 05/14/24 20:00 05/14/24 20:00 2 05/14/24 19:50 2 05/14/24 19:42 05/14/24 19:42 05/14/24 19:42 05/14/24 19:41 2 28 05/14/24 18:46 05/14/24 17:00 05/14/24 16:00 05/14/24 16:00 05/14/24 15:00 Intake and Output 05/14/24 05/15/24 05/15/24 23:59 07:59 15:59 Intake Total 50 / 350 300 / 350 Output Total 0 / 0 0 / 0 Balance 0 / 310 50 / 350 300 / 350 Intake: Intake, Oral Amount 50 / 350 300 / 350 Output: Output, Urine Amount 0 / 0 0 / 0 Other: Number of Unmeasured Voids 1 1 Number of Bowel Movements 1 Weight 51.301 kg Patient Weight 05/15/24 23:59 Weight 51.301 kg Laboratory Results - last 24 hr 05/15/24 07:28: WBC 5.8, RBC 3.72 L, Hgb 12.5, Hct 39.8, MCV 107.1 H, MCH 33.5 H, MCHC 31.3 L, RDW 13.4, Plt Count 193, MPV 8.5, Neut % (Auto) 79.2, Lymph % (Auto) 16.1, [place] % (Auto) 3.4, Eos % (Auto) 0.9, Baso % (Auto) 0.4, Neut # (Auto) 4.6, Lymph # (Auto) 0.9, [place] # (Auto) 0.2, Eos # (Auto) 0.1, Baso # (Auto) 0.0, Sodium 140, Potassium 3.6, Chloride 105, Carbon Dioxide 28, Anion Gap 10.6, BUN 16, Creatinine 0.50 L, Estimated Creat Clear 37, Estimated GFR 119, Est GFR ( Amer) 144, Glucose 71 L D, Calcium 8.5, Magnesium 1.9, Total Bilirubin 0.4, AST 29, ALT 12, Alkaline Phosphatase 61, Total Protein 6.7, Albumin 3.4 L, Globulin 3.3 H, Albumin/Globulin Ratio 1.0 L I & O for Labs for Last 24 Hours: Intake & Output 05/12/24 05/13/24 05/14/24 05/15/24 23:59 23:59 23:59 23:59 Intake Total 940 / 1140 260 / 310 350 / 350 Output Total 0 / 0 0 / 0 0 / 0 0 / 0 Balance 0 / 350 940 / 1140 260 / 310 350 / 350 Weight 49.895 kg 53.55 kg 53.55 kg 51.301 kg Microbiology Reports for the Last 24 Hours: Microbiology 05/12/24 Unknown Urine,Clean Catch Urine Culture - Final 05/12/24 16:35 Blood Blood Culture - Preliminary NO GROWTH AFTER 48 HOURS 05/12/24 16:30 Blood Blood Culture - Preliminary NO GROWTH AFTER 48 HOURS Constitutional: Present no acute distress, thin and chronically ill appearing Head: Present atraumatic and normocephalic ENT: Present normal exam Neck: Present normal inspection Respiratory: Present rhonchi, crackles and normal respiratory effort; Absent wheezes Cardiac: Present Reg Rate and Rhythm GI: Present soft and normal bowel sounds; Absent distention or tenderness Extremities: Present normal inspection and full ROM Skin: Present intact; Absent erythema Neuro: Present Grossly Intact, alert, awake, oriented x 3 and moves all extremities Assessment and Plan *Assessment and plan (1) Acute hypoxemic respiratory failure: Status: Acute Category: Medical Code(s): J96.01 - Acute respiratory failure with hypoxia (2) Human metapneumovirus (hMPV) pneumonia: Status: Acute Category: Medical Code(s): J12.3 - Human metapneumovirus pneumonia (3) Urinary tract infection: Status: Acute Qualifiers: Urinary tract infection type: site unspecified Hematuria presence: without hematuria Qualified Code(s): N39.0 - Urinary tract infection, site not specified Category: Medical Code(s): N39.0 - Urinary tract infection, site not specified (4) Multiple sclerosis: Status: Acute Category: Medical Code(s): G35 - Multiple sclerosis (5) Hiatal hernia with gastroesophageal reflux disease without esophagitis: Status: Acute Category: Medical Code(s): K44.9 - Diaphragmatic hernia without obstruction or gangrene; K21.9 - Gastro-esophageal reflux disease without esophagitis (6) Wheelchair dependent: Status: Acute Category: Medical Code(s): Z99.3 - Dependence on wheelchair Plan 78-year-old female who presented with shortness of breath, cough, hypoxia. History of multiple sclerosis. Found to have human metapneumovirus. Continues to require inpatient management with supplemental oxygen and respiratory therapy. Having a hard time clearing her secretions. Problems addressed as follows: Human metapneumovirus pneumonia Acute hypoxemic respiratory failure -Supplemental oxygen as needed, goal sats greater 90%. Weaned to room air today. May necessitate oxygen overnight -Continue DuoNebs every 6 hours scheduled -Continue aggressive respiratory therapy with percussion twice daily using vest. Flutter valve multiple times an hour. -Continue ceftriaxone and doxycycline while admitted. Can wean to cefdinir at discharge to complete 5 days total of antibiotics. -If unable to provide percussion at rehab facility on discharge, will transition to flutter valve. -Sputum culture pending -Speech evaluated, no restrictions on diet. -White cell count of 6 this morning. I have ordered CBC, CMP, magnesium for the morning. -Remainder of labs nonactionable with Sodium 140, chloride 105, potassium 3.6, magnesium 1.9. Creatinine remains 0.5 MS versus potential stroke -MRI obtained, Formal read concerning for microvascular gliotic changes, demyelination less likely. -Therapy working with patient. Recommend skilled rehab -Urinary tract infection: Patient has a history of for incontinent. Wheelchair-bound Continue IV ceftriaxone. Urine culture pending -Large hiatal hernia with esophagitis reflux, containing transverse colon and rotation of the stomach. Suspected worsened. low suspicion for gangrene or obstruction. Patient does not have any symptoms denies abdominal pain. They initially refused surgical treatment Records from [facility] received and reviewed. Protonix daily. Tums and GI could take twice daily Other chronic conditions: Osteoporosis degenerative disc disease Anxiety - Buspirone 10 mg twice daily for anxiety - Zoloft 150 mg daily for anxiety Lovenox for DVT prophylaxis. DNR Regular diet
[2024-05-15] MEDS: MULTIVITAMIN TABLET 1 EACH PO (16:58)
--- NOTE | 2024-05-15 17:24 | PC.NURSE ---
Pt states she has had a good day and feels pretty good . Pt has been on room air this shift and has tolerated it well with sats 91-96%. VSS.
[2024-05-15] MEDS: ATORVASTATIN 10MG TABLET 10 MG PO (20:48)
[2024-05-15] MEDS: PANTOPRAZOLE 40MG TABLET 40 MG PO (20:48)
[2024-05-15] MEDS: CEFTRIAXONE 1 GM 1 GM in 0.9 % SODIUM CHLORIDE 50 ML IV (22:54)
[2024-05-16] VITALS (7 sets, daily range): BP systolic 107–132; BP diastolic 51–81; PULSE 66–84; RESP 14–22; TEMP 36.6–36.9; O2SAT 91–97; BMI 20.8
--- NOTE | 2024-05-16 04:10 | PC.NURSE ---
Pt has rested quietly though the night with 02 at 2 liters per NC. 02 sats vary from high 80s to mid 90s. She remains with audible congestion and insp wheezing. Encouraged to deep breath and cough at times while awake.
[2024-05-16] MEDS: IPRATROPIUM/ALBUTEROL 3 ML NEB IH (06:14)
[2024-05-16 07:02] LABS: Chloride 107 mmol/L (98-107); Potassium 3.6 mmoL/L (3.5-5.1); Sodium 143 mmol/L (136-145)
[2024-05-16 07:05] LABS: Alanine Aminotransferase 13 U/L (12-78); Albumin Level 3.5 g/dl (3.5-5.0); Albumin/Globulin Ratio 1.1 (1.1-1.8); Alkaline Phosphatase 59 U/L (38-126); Anion Gap 10.6 mEq/L (5-15); Aspartate Amino Transferase 32 U/L (14-36); Bilirubin,Total 0.2 mg/dl (0.2-1.3); Blood Urea Nitrogen 20 mg/dl (7-17); Calcium 8.8 mg/dl (8.4-10.2); Carbon Dioxide 29 mmol/L (22.0-30.0); Creatinine Clearance Estimated 37 mL/min (50-200); Estimated Glomerular Filt Rate 96 ml/min (>60); GFR (African American) 117 ML/MIN (>60); Globulin 3.3 g/dL (1.3-3.2); Glucose 102 mg/dl (74-100); Total Protein,Serum 6.8 g/dl (6.3-8.2)
[2024-05-16 07:06] LABS: Basophils % 0.6 % (0.1-2.0); Eosinophils # 0.1 K/mm3 (0.0-0.4); Eosinophils % 1.2 % (0.1-12.0); Hematocrit 40.6 % (37.0-47.0); Hemoglobin 12.9 g/dL (12.2-16.2); Lymphocytes % 22.6 % (10-50); Mean Corpuscular HGB Conc 31.7 g/dL (31.8-35.4); Mean Corpuscular Hemoglobin 34.3 pg (27.0-31.2); Mean Corpuscular Volume 108.1 fl (81-99); Mean Platelet Volume 8.5 fl (7.4-10.4); Monocytes # 0.2 K/mm3 (0.1-1.0); Neutrophils # 3.2 K/mm3 (1.8-7.8); Neutrophils % 71.6 % (37.0-80.0); Platelet Count 232 K/mm3 (142-424); Red Blood Count 3.75 M/mm3 (4.20-5.40); Red Cell Distribution Width 13.3 % (11.5-17.5); White Blood Count 4.5 K/mm3 (4.8-10.8)
[2024-05-16 07:23] LABS: Magnesium 1.9 mg/dl (1.6-2.3); Phosphorous 3.8 mg/dl (2.5-4.5)
--- NOTE | 2024-05-16 07:31 | XR_ITS ---
FINAL REPORT CLINICAL HISTORY: Shortness of breath COMPARISON: 05/12/2024 FINDINGS: Compressive atelectasis is noted in the right lung base. The left lung is clear. There is no evidence of effusion or pneumothorax. Mediastinum is unremarkable. There is a large hiatal hernia. Heart size is normal. IMPRESSION: No significant change from prior. Reviewed, Interpreted and Dictated by Onesimo Aldrich MD Transcribed by Carlotta Guzman Authenticated and [facility]
--- NOTE | 2024-05-16 07:32 | P.DS_ITS ---
General Admission date:: 05/12/24 Discharge date: 05/16/24 HPI HPI HPI: This patient is a 78-year-old female [facility]-WAY resident with PMHx significant for multiple sclerosis, hyperlipidemia, GERD, large hiatal hernia, former smoker arriving to the ER for evaluation of shortness of breath and hypoxia. Patient is alert and oriented, however forgetful and poor historian. History obtained from daughter(CANDIE) at the bedside. They report patient had a fever, cough, and was shortness of breath; reason why facility scented to the ED for evaluation. Patient does not wear oxygen on baseline she otherwise denies chest pain nausea vomiting or diarrhea or any abdominal pain. she is wheelchair-bound and incontinent of bowel and urine secondary to MS. admitted for Hospital Course Hospital Course Hospital Course: 78-year-old female who presented with shortness of breath, cough, hypoxia. History of multiple sclerosis. Found to have human metapneumovirus. Necessitated intermittent oxygen during admission. Has done well with respiratory therapy and symptomatic treatment. Stable to discharge back to [facility] for skilled care and further management. Tolerating p.o. intake. Problems addressed as follows: Human metapneumovirus pneumonia Acute hypoxemic respiratory failure -Patient admitted for new oxygen requirement and respiratory failure. Found to be positive for human metapneumovirus on comprehensive respiratory panel. Chest imaging showing bronchitis and questionable pneumonia. Has intermittently needed 2 L oxygen to maintain sats greater than 90%. Continue oxygen at night, room air during the day as tolerated. Continue DuoNebs every 6 hours scheduled. Would recommend continuing respiratory therapy including flutter valve and breathing treatments. Was on antibiotics with ceftriaxone and doxycycline for possible UTI and respiratory infection. Patient completed 5 days of antibiotics . Fifth dose of ceftriaxone administered before transferring back to [facility]. -Sputum culture obtained and pending, no growth at this time. Speech evaluated patient. No restrictions on her diet. White cell count remained normal, 4.5 on day of discharge. Would benefit from repeat labs in 1 week. Kidney function and electrolytes normal as well. MS versus potential stroke -MRI obtained, personally reviewed showing periventricular white matter lesions. They appear more infarct like to me given location and attenuation on T2 weighting. Formal read concerning for microvascular gliotic changes, demyelination less likely. Therapy working with patient. Recommend skilled rehab -Urinary tract infection: Patient has a history of incontinence. Wheelchair-bound. Urine culture had mul tiple pathogens, concerning for contaminant. No clear source of infection. Complete antibiotics as above for respiratory source. -Large hiatal hernia with esophagitis reflux, containing transverse colon and rotation of the stomach. Suspected worsened. low suspicion for gangrene or obstruction. Patient does not have any symptoms denies abdominal pain. They initially refused surgical treatment Records from [facility] received and reviewed. Protonix daily. Tums and GI could take twice daily Other chronic conditions: Osteoporosis degenerative disc disease Anxiety - Buspirone 10 mg twice daily for anxiety - Zoloft 150 mg daily for anxiety Total time spent on discharge 32 minutes in counseling, documentation, chart review, and direct care with patient. Exam Data for Last 24 hours Vital signs and Labs for Last 24 Hours: Temp Pulse Resp BP Pulse Ox O2 Del Method O2 Flow Rate 98.1 F 86 20 136/68 96 Room Air 91 05/15/24 16:00 05/15/24 16:00 05/15/24 16:00 05/15/24 16:00 05/15/24 16:00 05/15/24 17:00 05/15/24 09:20 FiO2 28 05/14/24 19:41 Laboratory Results - last 24 hr 05/15/24 07:28: WBC 5.8, RBC 3.72 L, Hgb 12.5, Hct 39.8, MCV 107.1 H, MCH 33.5 H , MCHC 31.3 L, RDW 13.4, Plt Count 193, MPV 8.5, Neut % (Auto) 79.2, Lymph % (Auto) 16.1, [place] % (Auto) 3.4, Eos % (Auto) 0.9, Baso % (Auto) 0.4, Neut # (Auto) 4.6, Lymph # (Auto) 0.9, [place] # (Auto) 0.2, Eos # (Auto) 0.1, Baso # (Auto) 0.0, Sodium 140, Potassium 3.6, Chloride 105, Carbon Dioxide 28, Anion Gap 10.6, BUN 16, Creatinine 0.50 L, Estimated Creat Clear 37, Estimated GFR 119, Est GFR ( Amer) 144, Glucose 71 L D, Calcium 8.5, Magnesium 1.9, Total Bilirubin 0.4, AST 29, ALT 12, Alkaline Phosphatase 61, Total Protein 6.7, Albumin 3.4 L, Globulin 3.3 H, Albumin/Globulin Ratio 1.0 L I & O for Last 24 hours: Intake & Output 05/12/24 05/13/24 05/14/24 05/15/24 23:59 23:59 23:59 23:59 Intake Total 940 / 1140 260 / 310 710 / 710 Output Total 0 / 0 0 / 0 0 / 0 0 / 0 Balance 0 / 350 940 / 1140 260 / 310 710 / 710 Weight 49.895 kg 53.55 kg 53.55 kg 51.301 kg Microbiology Reports for the Last 24 Hours: Microbiology 05/12/24 Unknown Urine,Clean Catch Urine Culture - Final 05/12/24 16:35 Blood Blood Culture - Preliminary NO GROWTH AFTER 48 HOURS 05/12/24 16:30 Blood Blood Culture - Preliminary NO GROWTH AFTER 48 HOURS Constitutional Constitutional: no acute distress, thin, chronically ill appearing and cooperative *Routine HEENT Exam Head: Present normocephalic Eye: Present EOMI and PERRL ENT: Present mucous membranes moist *Routine Neck Exam Neck: Present supple; Absent lymphadenopathy *Routine Respiratory Exam Respiratory: Present CTA bilaterally, prolonged expiratory phase and rhonchi; Absent wheezes or crackles *Routine Cardiovascular Exam Cardiovascular: Present RRR *Routine Abdominal Exam Abdominal: Present soft and normoactive bowel sounds; Absent tenderness *Routine Rectal Exam Patient deferred: visual exam *Routine Extremities Exam Extremities: Absent cyanosis, clubbing or edema *Routine Skin Exam Skin: Present intact and warm; Absent rash *Routine Neurological Exam Neurological: Present alert and moving all extremities; Absent altered mental status Results Data Completed and Pending Labs on day of discharge: Labs from last 24 hours 05/15/24 07:28 WBC 5.8 RBC 3.72 L Hgb 12.5 Hct 39.8 MCV 107.1 H MCH 33.5 H MCHC 31.3 L RDW 13.4 Plt Count 193 MPV 8.5 Neut % (Auto) 79.2 Lymph % (Auto) 16.1 [place] % (Auto) 3.4 Eos % (Auto) 0.9 Baso % (Auto) 0.4 Neut # (Auto) 4.6 Lymph # (Auto) 0.9 [place] # (Auto) 0.2 Eos # (Auto) 0.1 Baso # (Auto) 0.0 Sodium 140 Potassium 3.6 Chloride 105 Carbon Dioxide 28 Anion Gap 10.6 BUN 16 Creatinine 0.50 L Estimated Creat Clear 37 Estimated GFR 119 Est GFR ( Amer) 144 Glucose 71 L D Calcium 8.5 Magnesium 1.9 Total Bilirubin 0.4 AST 29 ALT 12 Alkaline Phosphatase 61 Total Protein 6.7 Albumin 3.4 L Globulin 3.3 H Albumin/Globulin Ratio 1.0 L Preliminary micro results at discharge 05/12/24 16:35 Blood Culture - Preliminary Blood NO GROWTH AFTER 48 HOURS 05/12/24 16:30 Blood Culture - Preliminary Blood NO GROWTH AFTER 48 HOURS DS: Diagnosis Discharge Diagnosis (1) Acute hypoxemic respiratory failure: Status: Acute Code(s): J96.01 - Acute respiratory failure with hypoxia (2) Human metapneumovirus (hMPV) pneumonia: Status: Acute Code(s): J12.3 - Human metapneumovirus pneumonia (3) Urinary tract infection: Status: Acute Code(s): N39.0 - Urinary tract infection, site not specified Qualifiers: Hematuria presence: without hematuria Urinary tract infection type: site unspecified Qualified Code(s): N39.0 - Urinary tract infection, site not specified (4) Multiple sclerosis: Status: Acute Code(s): G35 - Multiple sclerosis (5) Hiatal hernia with gastroesophageal reflux disease without esophagitis: Status: Acute Code(s): K44.9 - Diaphragmatic hernia without obstruction or gangrene; K21.9 - Gastro- esophageal reflux disease without esophagitis (6) Wheelchair dependent: Status: Acute Code(s): Z99.3 - Dependence on wheelchair Meds Home Medications and Allergies Home Medications Medication Instructions Recorded Confirmed Type acetaminophen 325 mg tablet 650 mg PO Q6HP PRN pain or fever 05/12/24 05/13/24 History aluminum-mag hydroxide-simethicone 5 ml PO BID PRN GI DISCOMFORT 05/12/24 05/12/24 History 200 mg-200 mg-20 mg/5 mL oral susp (Maalox Advanced) atorvastatin 10 mg tablet 10 mg PO DAILY 05/12/24 05/12/24 History baclofen 5 mg tablet 5 mg PO BID 05/12/24 05/12/24 History buspirone 10 mg tablet 10 mg PO BID 05/12/24 05/12/24 History calcium carb,cit ER 600 mg-vit D3 1 tab PO DAILY 05/12/24 05/12/24 History 12.5 mcg (500 unit) tablet,ext.rel calcium carbonate (Tums) 300 mg PO QID PRN indegestion 05/12/24 05/12/24 History ferrous sulfate 325 mg (65 mg 325 mg PO DAILY 05/12/24 05/12/24 History iron) tablet,delayed release pputzcnb-cfr-oully acid 0.4 1 tab PO DAILY 05/12/24 05/12/24 History mg-lycopene 300 mcg-lutein 250 mcg tablet (CertaVite Senior) omeprazole 40 mg capsule,delayed 40 mg PO DAILY 05/12/24 05/12/24 History release ondansetron 4 mg disintegrating 4 mg PO Q8H PRN Nausea And Vomiting 05/12/24 05/12/24 History tablet raloxifene 60 mg tablet 60 mg PO DAILY 05/12/24 05/12/24 History sertraline 100 mg tablet (Zoloft) 100 mg PO DAILY 05/12/24 05/12/24 History sertraline 50 mg tablet (Zoloft) 50 mg PO DAILY 05/12/24 05/12/24 History vibegron 75 mg tablet (Gemtesa) 75 mg PO DAILY 05/12/24 05/12/24 History vitamin B complex 1 tab PO DAILY 05/12/24 05/12/24 History dextromethorphan-guaifenesin 10 5 ml PO Q8HP PRN Cough #0 mL 05/16/24 Rx mg-100 mg/5 mL oral syrup ipratropium 0.5 mg-albuterol 3 mg 3 ml inhalation Q6HP PRN #0 mL 05/16/24 Rx (2.5 mg base)/3 mL nebulization soln New Prescriptions to Start Prescriptions: Allergies Allergy/AdvReac Type Severity Reaction Status Date / Time No Known Allergies Allergy Verified 05/12/24 16:24 Discharge Plan Disposition Patient Disposition: [facility] Condition: Fair Discharge Order Discharge Orders: Discharge Order (Routine); Ordered 05/16/24 Ordered By: Sven Leung Follow up Plan Follow up with: Mickey Montgomery MD [Physician] - 06/01/24 1:00 pm Prescriptions/Medication Reconciliation: New ipratropium-albuterol 0.5 mg-3 mg(2.5 mg base)/3 mL Solution For Nebulization 3 ml inhalation Q6HP PRNQty: 0 0RF dextromethorphan-guaifenesin 10-100 mg/5 mL Syrup 5 ml PO Q8HP PRN (Reason: Cough) Qty: 0 0RF Continued acetaminophen 325 mg Tablet 650 mg PO Q6HP PRN (Reason: pain or fever) atorvastatin 10 mg Tablet 10 mg PO DAILY buspirone 10 mg Tablet 10 mg PO BID vitamin B complex Tablet 1 tab PO DAILY ferrous sulfate 325 mg (65 mg iron) Tablet,Delayed Release (Dr/Ec) 325 mg PO DAILY CertaVite Senior 0.4 mg-300 mcg- 250 mcg Tablet 1 tab PO DAILY calcium carb and citrate-vitD3 600 mg-12.5 mcg (500 unit) Tablet Extended Release 1 tab PO DAILY baclofen 5 mg Tablet 5 mg PO BID sertraline [Zoloft] 100 mg Tablet 100 mg PO DAILY Rx Instructions: given with 50 mg tablet to equal 150 mg Tums 300 mg (750 mg) Tablet,Chewable 300 mg PO QID PRN (Reason: indegestion) omeprazole 40 mg Capsule,Delayed Release(Dr/Ec) 40 mg PO DAILY raloxifene 60 mg Tablet 60 mg PO DAILY alum-mag hydroxide-simeth [Maalox Advanced] 200-200-20 mg/5 mL Suspension 5 ml PO BID PRN (Reason: GI DISCOMFORT) ondansetron 4 mg Tablet,Disintegrating 4 mg PO Q8H PRN (Reason: Nausea And Vomiting) sertraline [Zoloft] 50 mg Tablet 50 mg PO DAILY Rx Instructions: given with 100 mg tablet to equal 150 mg Gemtesa 75 mg Tablet 75 mg PO DAILY Problem Reconciliation Problems Reviewed?: Yes Patient Discharge Instructions ACTIVITY: Ambulate as tolerated DIET: continue same diet Patient Instructions: Fever of Unknown Origin, DI for Shortness of Breath, DI for Encephalopathy, DI for Respiratory Failure, Human Metapneumovirus Infection Providers Primary Care Provider: Link Rodriguez Admit Provider: Sven Leung Attending Provider: Sven Leung
[2024-05-16] MEDS: BUSPIRONE HCL 10 MG TABLET PO (08:29)
[2024-05-16] MEDS: BACLOFEN 10MG TABLET 5 MG PO (08:29)
[2024-05-16] MEDS: SERTRALINE 100MG TABLET 150 MG PO (08:30)
[2024-05-16] MEDS: FERROUS SULFATE 325MG TABLET 325 MG PO (08:30)
[2024-05-16] MEDS: CALCIUM CARB + VIT D 500MG TAB 500 MG PO (08:30)
[2024-05-16] MEDS: CEFTRIAXONE 1 GM 1 GM in 0.9 % SODIUM CHLORIDE 50 ML IV (12:05)
--- NOTE | 2024-05-16 12:59 | PC.NURSE ---
Report called to Rishi at [facility].
== END 2024-05-16 13:23 | DRG 193 ==
LOC: ER 19:19 → 2ND 20:11
PROVIDERS: Nurse Practitioner Family; Admitting Provider Internal Medicine Adolescent Medicine; Emergency Provider Student in an Organized Health Care Education/Training Program; PCP Family Medicine; Visit Provider Internal Medicine Adolescent Medicine
DX: J12.3 Human metapneumovirus pneumonia (principal); J96.01 Acute respiratory failure with hypoxia; N39.0 Urinary tract infection, site not specified; G35 Multiple sclerosis; K44.9 Diaphragmatic hernia without obstruction or gangrene; K21.9 Gastro-esophageal reflux disease without esophagitis; Z99.3 Dependence on wheelchair; Z87.891 Personal history of nicotine dependence; K20.90 Esophagitis, unspecified without bleeding; M81.0 Age-related osteoporosis without current pathological fracture; F41.9 Anxiety disorder, unspecified; K21.00 Gastro-esophageal reflux disease with esophagitis, without bleeding
CPT/HCPCS: 36415; 70551; 71045; 71275; 80053; 81001; 82803; 83735; 83880; 84100; 84484; 85007; 85025; 85378; 87040; 87086; 87581; 87632; 87635; 87636; 87798; 92610; 93005; 94640; 94667; 94668; 97162; 97165; 97530; 99291; G0238; J0131; J0696; J1650; J2930; J3475; J7620; Q9967